=== PATIENT | female | born 1960 | race Caucasian/White ===

== ENCOUNTER 2016-11-25 12:01 | Inpatient (IN) | payer SELFPAY ==
[~2016-11-25] VITALS: Ht 165.1 cm; Wt 59.0 kg
[2016-11-25] MEDS ORDERED: CLARITIN5 MG ORAL (12:13)
[2016-11-25] MEDS ORDERED: GABAPENTIN100 MG ORAL (12:13)
[2016-11-25 12:40] VITALS: BP 99/64
[2016-11-25 12:52] LABS: MEAN CORPUSCULAR HEMOGLOBIN 31.5 PG (27.0-31.0); MEAN CORPUSCULAR HGB CONC 34.3 G/DL (32.0-36.0); MEAN CORPUSCULAR VOLUME 92 FL (80-99); PLATELET COUNT 438 K/UL (150-450); RED BLOOD COUNT 4.24 M/UL (4.20-5.40); RED CELL DISTRIBUTION WIDTH 10.9 % (11.6-14.8); WHITE BLOOD COUNT 15.3 K/UL (4.8-10.8)
[2016-11-25 13:05] LABS: ALANINE AMINOTRANSFERASE 11 U/L (3-33); ALBUMIN/GLOBULIN RATIO 0.5 (1.0-2.7); ASPARTATE AMINO TRANSFERASE 23 U/L (5-40); CALCIUM 8.2 mg/dL (8.6-10.2); CARBON DIOXIDE 18 mEQ/L (20-30); CHLORIDE 84 mEQ/L (98-107); CREATININE 0.8 mg/dL (0.5-0.9); GLOMERULAR FILTRATION RATE > 60 mL/min (>60); HEMOLYSIS 4; LIPASE 22 U/L (< 60); SODIUM 123 mEQ/L (135-145); TOTAL PROTEIN 5.7 g/dL (6.6-8.7)
[2016-11-25 13:10] LABS: ANION GAP 21 (5-15)
[2016-11-25 13:11] LABS: POTASSIUM 2.1 mEQ/L (3.4-4.9)
[2016-11-25 13:20] LABS: BAND NEUTROPHILS % (MANUAL) 19 % (0-8); BASOPHILS % (MANUAL) 0 % (0-2); EOSINOPHILS % (MANUAL) 0 % (0-3); HYPOCHROMASIA 1+; LYMPHOCYTES % (MANUAL) 4 % (20-45); NEUTROPHILS % (MANUAL) 72 % (45-75); PLATELET ESTIMATE ADEQUATE; PLATELET MORPHOLOGY NORMAL; TOTAL CELLS COUNTED 100
[2016-11-25 14:00] VITALS: BP 131/87
[2016-11-25] MEDS ORDERED: Piperacillin/Tazobactam 4.5 GM in NS 110 ML IV SCH (14:00)
[2016-11-25] MEDS ORDERED: KCl 10% 40mEq/30ml liquid ORAL ONE ×2 (14:00)
--- NOTE | 2016-11-25 14:18 | Emergency Room Report ---
History of Present Illness General Chief Complaint: Abdominal Pain Source: Patient (CORONA SCHMIDT M.D.) Present Illness HPI 55YOF with abdominal pain, nausea and diffuse watery diarrhea. C/o worsening pain to known hernia site. States she has "two" in the umbilicus. Denies abd/ pelvic surgery in the past. C/o chills as well. Denies urinary complaints. Denies other medical problems. (CORONA SCHMIDT M.D.) Allergies: Coded Allergies: No Known Allergies (Unverified , 09/20/13) Patient History Past Medical History: none Past Surgical History: other - Hernia Pertinent Family History: none Social History: Denies: alcohol use, drug use, smoking Last Menstrual Period: N/A Now: No Immunizations: UTD Reviewed Nursing Documentation: PMH: Agreed, PSxH: Agreed (CORONA SCHMIDT M.D.) Nursing Documentation-PMH Hx COPD: Yes (CORONA SCHMIDT M.D.) Review of Systems All Other Systems: negative except mentioned in HPI (CORONA SCHMIDT M.D.) Physical Exam Vital Signs Date Time Temp Pulse Resp B/P Pulse Ox O2 Delivery O2 Flow Rate FiO2 11/25/16 12:00 98.1 107 14 105/76 100 Room Air Sp02 EP Interpretation: reviewed, normal General Appearance: normal inspection, well appearing, alert, GCS 15, non-toxic , mild distress Head: normocephalic, atraumatic Eyes: bilateral eye EOMI, bilateral eye PERRL ENT: normal ENT inspection Neck: normal inspection, full range of motion, supple, no bony tend Respiratory: normal inspection, lungs clear, normal breath sounds, no respiratory distress, no retraction, no wheezing Cardiovascular #1: regular rate, rhythm, no edema Gastrointestinal: normal inspection, normal bowel sounds, soft, no guarding, no hernia, other - easily reducible para-umbilical hernia, 3cm in diameter, no overlying erythema Genitourinary: no CVA tenderness Musculoskeletal: normal inspection, back normal, normal range of motion, Nando' s Sign negative Neurologic: normal inspection, alert, oriented x3, responsive, radio maintainer III-XII nml as tested, motor strength/tone normal, speech normal Psychiatric: normal inspection, judgement/insight normal, mood/affect normal Skin: normal inspection, normal color, no rash (CORONA SCHMIDT M.D.) Medical Decision Making Diagnostic Impression: Primary Impression: Abdominal pain Qualified Codes: R10.84 - Generalized abdominal pain Additional Impressions: Hyponatremia Hypokalemia Sepsis Qualified Codes: A41.9 - Sepsis, unspecified organism Pancolitis Alcohol abuse ER Course Abd pain, nausea/diarrhea - VSS. Afebrile. - Reducible hernia - Labs significant for sepsis, hypoNa, hypoK - Analgesia provided - Empiric Abx given - Blood Cx pending - K repleted - NS given CTAP pending at time of signout Endorsed to Dr Dahl at 230pm to followup results of CT, endorse for admission (CORONA SCHMIDT M.D.) ER Course Patient was endorsed to me by Dr. Schmidt. See Dr. Schmidt's note for full history and physical.Patient was noted to have a chronic diarrhea and states she drank several alcoholic drinks a day regularly. The patient reported having multiple episodes of diarrhea which was somewhat bloody A CT abdomen pelvis read by radiology showed evidence of pancolitis. Dr. Lyons was contacted for inpatient management due to complexity of medical condition. Labs Test 11/25/16 12:30 11/25/16 15:20 11/25/16 16:05 White Blood Count 15.3 K/UL (4.8-10.8) Red Blood Count 4.24 M/UL (4.20-5.40) Hemoglobin 13.3 G/DL (12.0-16.0) Hematocrit 38.9 % (37.0-47.0) Mean Corpuscular Volume 92 FL (80-99) Mean Corpuscular Hemoglobin 31.5 PG (27.0-31.0) Mean Corpuscular Hemoglobin Concent 34.3 G/DL (32.0-36.0) Red Cell Distribution Width 10.9 % (11.6-14.8) Platelet Count 438 K/UL (150-450) Mean Platelet Volume 8.0 FL (6.5-10.1) Neutrophils (%) (Auto) % (45.0-75.0) Lymphocytes (%) (Auto) % (20.0-45.0) Monocytes (%) (Auto) % (1.0-10.0) Eosinophils (%) (Auto) % (0.0-3.0) Basophils (%) (Auto) % (0.0-2.0) Differential Total Cells Counted 100 Neutrophils % (Manual) 72 % (45-75) Lymphocytes % (Manual) 4 % (20-45) Monocytes % (Manual) 5 % (1-10) Eosinophils % (Manual) 0 % (0-3) Basophils % (Manual) 0 % (0-2) Band Neutrophils 19 % (0-8) Platelet Estimate Adequate Platelet Morphology Normal Hypochromasia 1+ Sodium Level 123 mEQ/L (135-145) Potassium Level 2.1 mEQ/L (3.4-4.9) Chloride Level 84 mEQ/L (98-107) Carbon Dioxide Level 18 mEQ/L (20-30) Anion Gap 21 (5-15) Blood Urea Nitrogen 13 mg/dL (7-23) Creatinine 0.8 mg/dL (0.5-0.9) Estimat Glomerular Filtration Rate > 60 mL/min (>60) Glucose Level 195 mg/dL (74-106) Calcium Level 8.2 mg/dL (8.6-10.2) Total Bilirubin 0.8 mg/dL (0.0-1.2) Aspartate Amino Transf (AST/SGOT) 23 U/L (5-40) Alanine Aminotransferase (ALT/SGPT) 11 U/L (3-33) Alkaline Phosphatase 85 U/L (35-104) Total Protein 5.7 g/dL (6.6-8.7) Albumin 2.1 g/dL (3.5-5.2) Globulin 3.6 g/dL Albumin/Globulin Ratio 0.5 (1.0-2.7) Lipase 22 U/L (< 60) Lactic Acid Level 3.00 mmol/L (0.66-2.22) (Angel Dahl) EKG Diagnostic Results Rate: normal Rhythm: NSR ST Segments: no acute changes ASA given to the pt in ED: No (CORONA SCHMIDT M.D.) Rhythm Strip Diag. Results EP Interpretation: yes Rate: 95 Rhythm: NSR, no PVC's, no ectopy (CORONA SCHMIDT M.D.) Last Vital Signs Date Time Temp Pulse Resp B/P Pulse Ox O2 Delivery O2 Flow Rate FiO2 11/25/16 12:40 98.1 100 14 99/64 100 Room Air Status: improved (CORONA SCHMIDT M.D.) Status: unchanged (Angel Dahl) Disposition: ADMITTED INPATIENT Condition: Serious Referrals: NOT CHOSEN IPA/,REFERRING (PCP) CORONA SCHMIDT M.D. Nov 25, 2016 14:18 Angel Dahl Nov 25, 2016 17:11
[2016-11-25] MEDS: Vancomycin 1 GM in NS 275 ML IV ONE ×2 (15:20→16:35)
[2016-11-25] MEDS ORDERED: Miralax 17gm pkt ORAL PRN (16:00)
[2016-11-25] MEDS ORDERED: Mylanta II UD 30ml ORAL PRN (16:00)
[2016-11-25] MEDS ORDERED: Nitroglycerin Subl 0.4mg tab (Bottle Of 25) SL PRN (16:00)
[2016-11-25] MEDS ORDERED: Morphine Sulfate 2mg/ml Inj IVP ONE (16:15)
[2016-11-25] MEDS ORDERED: Vancomycin 1gm inj IVPB ONE ×2 (16:27→16:39)
[2016-11-25 16:30] VITALS: BP 112/69
--- NOTE | 2016-11-25 16:34 | Diagnostic Imaging Report ---
Indication: Abdominal pain Technique: Continuous helical transaxial imaging of the abdomen and pelvis was obtained from the lung bases to the pubic symphysis during intravenous contrast administration. Coronal 2-D reformats were also obtained. Study obtained in a Siemens sensation [address] Total Dose length Product (DLP): [address] Dose Index Volume (CTDIvol): 12 mGy Comparison: None Findings: There is a moderate size paraesophageal hernia present. The lung bases are clear. The liver is low-attenuation consistent with fatty infiltration. There is wall thickening involving the colon diffusely suspicious for colitis. Please correlate clinically. There is no pneumatosis, free air, free fluid. Aorta is moderately calcified. Uterus is noted. There is no evidence of bowel obstruction. The gallbladder is contracted but unremarkable otherwise. No abnormalities of the spleen identified. There are punctate calcifications within the pancreatic head which may be sign of prior pancreatitis. There is a epigastric fat-containing abdominal wall hernia at the midline anterior abdominal wall. Appendix is not definitely seen but there are no secondary signs of acute appendicitis. A few small nodes in the mesentery noted nonspecific in nature. There is narrowing of intervertebral discs and accompanying endplate osteophyte formation. Hypertrophied facet joints also demonstrated.. Minimal anterolisthesis of L4 and 5 demonstrated. Impression: Pancolitis. Fatty liver Paraesophageal hernia Atherosclerotic disease Epigastric fat-containing hernia. Chronic calcific pancreatitis suspected involving the head of the pancreas. Spondylosis The CT scanner at [facility] is accredited by the [employer] and the scans are performed using dose optimization techniques as appropriate to a performed exam including Automatic Exposure control.
[2016-11-25 17:23] LABS: REFLEX LACTIC ACID YES OR NO YES
[2016-11-25 18:16] VITALS: BP 119/77
--- NOTE | 2016-11-25 18:52 | History and Physical ---
History of Present Illness General Date patient seen: Nov 25, 2016 Reason for Hospitalization: Abdominal Pain Present Illness HPI 55 year old female with hx of Depression, ETOH abuse presented to ER with bloody diarrhea, She was diagnosed to have pancolitis via CT scan and admitted for further evaluation. Allergies: Coded Allergies: No Known Allergies (Unverified , 09/20/13) Medication History Scheduled Gabapentin* (Gabapentin*), 100 MG ORAL THREE TIMES A DAY, (Reported) Loratadine (Claritin), 5 MG ORAL DAILY, (Reported) Patient History Healthcare decision maker Resuscitation status Advanced Directive on File Past Medical/Surgical History Past Medical/Surgical History: (1) abodminal hernia (2) Alcohol abuse Review of Systems All Other Systems: negative except mentioned in HPI Physical Exam General Appearance: cachetic Lines, tubes and drains: peripheral HEENT: normocephalic, atraumatic Neck: non-tender, normal alignment Respiratory/Chest: chest wall non-tender, lungs clear Breasts: no masses Cardiovascular/Chest: normal rate Abdomen: tender Genitourinary/Rectal: normal genital exam Extremities: normal range of motion Last 24 Hour Vital Signs Date Time Temp Pulse Resp B/P Pulse Ox O2 Delivery O2 Flow Rate FiO2 11/25/16 18:16 97.9 83 19 119/77 100 Room Air 11/25/16 17:26 98.1 80 16 112/69 100 Room Air 11/25/16 17:05 98.1 11/25/16 16:30 80 16 112/69 100 Room Air 11/25/16 14:00 88 16 131/87 100 Room Air 11/25/16 12:40 98.1 100 14 99/64 100 Room Air 11/25/16 12:00 98.1 107 14 105/76 100 Room Air Laboratory Tests Test 11/25/16 12:30 11/25/16 15:20 11/25/16 16:05 White Blood Count 15.3 K/UL (4.8-10.8) H Red Blood Count 4.24 M/UL (4.20-5.40) Hemoglobin 13.3 G/DL (12.0-16.0) Hematocrit 38.9 % (37.0-47.0) Mean Corpuscular Volume 92 FL (80-99) Mean Corpuscular Hemoglobin 31.5 PG (27.0-31.0) H Mean Corpuscular Hemoglobin Concent 34.3 G/DL (32.0-36.0) Red Cell Distribution Width 10.9 % (11.6-14.8) L Platelet Count 438 K/UL (150-450) Mean Platelet Volume 8.0 FL (6.5-10.1) Neutrophils (%) (Auto) % (45.0-75.0) Lymphocytes (%) (Auto) % (20.0-45.0) Monocytes (%) (Auto) % (1.0-10.0) Eosinophils (%) (Auto) % (0.0-3.0) Basophils (%) (Auto) % (0.0-2.0) Differential Total Cells Counted 100 Neutrophils % (Manual) 72 % (45-75) Lymphocytes % (Manual) 4 % (20-45) L Monocytes % (Manual) 5 % (1-10) Eosinophils % (Manual) 0 % (0-3) Basophils % (Manual) 0 % (0-2) Band Neutrophils 19 % (0-8) H Platelet Estimate Adequate Platelet Morphology Normal Hypochromasia 1+ Sodium Level 123 mEQ/L (135-145) L Potassium Level 2.1 mEQ/L (3.4-4.9) *L Chloride Level 84 mEQ/L (98-107) L Carbon Dioxide Level 18 mEQ/L (20-30) L Anion Gap 21 (5-15) H Blood Urea Nitrogen 13 mg/dL (7-23) Creatinine 0.8 mg/dL (0.5-0.9) Estimat Glomerular Filtration Rate > 60 mL/min (>60) Glucose Level 195 mg/dL (74-106) H Calcium Level 8.2 mg/dL (8.6-10.2) L Total Bilirubin 0.8 mg/dL (0.0-1.2) Aspartate Amino Transf (AST/SGOT) 23 U/L (5-40) Alanine Aminotransferase (ALT/SGPT) 11 U/L (3-33) Alkaline Phosphatase 85 U/L (35-104) Total Protein 5.7 g/dL (6.6-8.7) L Albumin 2.1 g/dL (3.5-5.2) L Globulin 3.6 g/dL Albumin/Globulin Ratio 0.5 (1.0-2.7) L Lipase 22 U/L (< 60) Urine Color Pending Urine Appearance Pending Urine pH Pending Urine Specific [place] Pending Urine Protein Pending Urine Glucose (UA) Pending Urine Ketones Pending Urine Occult Blood Pending Urine Nitrite Pending Urine Bilirubin Pending Urine Urobilinogen Pending Urine Leukocyte Esterase Pending Lactic Acid Level 3.00 mmol/L (0.66-2.22) H Height (Feet): 5 Height (Inches): 1.00 Weight (Pounds): 130 Medications Current Medications Medications (Trade) Dose Ordered Sig/Pebbles Route PRN Reason Start Time Stop Time Status Last Admin Dose Admin Acetaminophen (Tylenol) 650 mg Q4H PRN ORAL fever 11/25/16 16:00 12/25/16 15:59 Al Hydroxide/Mg Hydroxide (Mylanta II) 30 ml Q6H PRN ORAL dyspepsia 11/25/16 16:00 12/25/16 15:59 Dextrose STAT PRN IV Hypoglycemia 11/25/16 16:00 12/25/16 15:59 Dextrose/Sodium Chloride (D5 0.45% NS) 1,000 ml @ 75 mls/hr [id number] IV 11/25/16 18:00 12/25/16 17:59 Diphenhydramine HCl (Benadryl) 25 mg Q6H PRN ORAL Itching/Pruritis 11/25/16 16:00 12/25/16 15:59 Heparin Sodium (Porcine) (Heparin 5000 units/ml) 5,000 units EVERY 12 HOURS SUBQ 11/25/16 21:00 12/25/16 20:59 Morphine Sulfate (Morphine Sulfate) 2 mg Q4H PRN IVP severe Pain (Pain Scale 7-10) 11/25/16 16:00 12/02/16 15:59 Nitroglycerin (Ntg) 0.4 mg Q5M X 3 DOSES PRN SL Prn Chest Pain 11/25/16 16:00 12/25/16 15:59 Ondansetron HCl (Zofran) 4 mg Q6H PRN IVP Nausea & Vomiting 11/25/16 16:00 12/25/16 15:59 Pantoprazole (Protonix) 40 mg DAILY IVP 11/26/16 09:00 12/26/16 08:59 Piperacillin Sod/ Tazobactam Sod/ Dextrose (Zosyn/D5W) 110 ml @ 27.5 mls/hr EVERY 8 HOURS IVPB 11/25/16 22:00 12/02/16 21:59 Polyethylene Glycol (Miralax) 17 gm HSPRN PRN ORAL Constipation 11/25/16 16:00 12/25/16 15:59 Temazepam (Restoril) 15 mg HSPRN PRN ORAL Insomnia 11/25/16 16:00 12/02/16 15:59 Assessment/Plan Problem List: (1) Pancolitis ICD Codes: K51.00 - Ulcerative (chronic) pancolitis without complications SNOMED: 679037555 (2) Sepsis ICD Codes: A41.9 - Sepsis, unspecified organism SNOMED: 20859070 Qualifiers: Qualified Codes: A41.9 - Sepsis, unspecified organism (3) Hyponatremia ICD Codes: E87.1 - Hypo-osmolality and hyponatremia SNOMED: 53660771 (4) abodminal hernia (5) Alcohol abuse ICD Codes: F10.10 - Alcohol abuse, uncomplicated SNOMED: 38893589 Assessment/Plan IV antibiotics IV fluids check stool cultures GI evaluation. JESSICA GARCIA Nov 25, 2016 18:52
[2016-11-25 20:00] VITALS: BP 112/63
[2016-11-25] MEDS: D5 1/2NS 1,000 ML IV SCH (20:30)
[2016-11-25] MEDS: Heparin 5000 units/ml inj SUBQ SCH (21:00)
[2016-11-25] MEDS: Piperacillin/Tazobactam 3.375 GM in D5W 110 ML IVPB SCH (22:18)
[2016-11-26] VITALS (7 sets, daily range): BP systolic 99–128; BP diastolic 59–76
[2016-11-26] MEDS: Piperacillin/Tazobactam 3.375 GM in D5W 110 ML IVPB SCH ×3 (05:29→21:22)
[2016-11-26] MEDS: Morphine Sulfate 2mg/ml Inj IVP PRN ×3 (06:03→15:58)
[2016-11-26 08:36] LABS: ALANINE AMINOTRANSFERASE 9 U/L (3-33); ALBUMIN/GLOBULIN RATIO 0.5 (1.0-2.7); AMYLASE 30 U/L (10-110); ASPARTATE AMINO TRANSFERASE 13 U/L (5-40); CALCIUM 7.4 mg/dL (8.6-10.2); CARBON DIOXIDE 23 mEQ/L (20-30); CHLORIDE 90 mEQ/L (98-107); CREATININE 0.6 mg/dL (0.5-0.9); GLOMERULAR FILTRATION RATE > 60 mL/min (>60); HEMOLYSIS 3; SODIUM 128 mEQ/L (135-145); TOTAL PROTEIN 4.9 g/dL (6.6-8.7)
[2016-11-26] MEDS: Heparin 5000 units/ml inj SUBQ SCH ×2 (08:38→21:21)
[2016-11-26 08:47] LABS: ANION GAP 15 (5-15)
[2016-11-26] MEDS: D5 1/2NS 1,000 ML IV SCH (08:50)
[2016-11-26 08:58] LABS: POTASSIUM 2.5 mEQ/L (3.4-4.9)
[2016-11-26] MEDS ORDERED: Pantoprazole Inj IVP SCH ×2 (09:00→18:00)
[2016-11-26 10:17] LABS: APPEARANCE,URINE CLEAR; KETONES,URINE NEGATIVE (NEGATIVE); LEUKOCYTE ESTERASE ,URINE 1+ (NEGATIVE); NITRITE,URINE POSITIVE (NEGATIVE); PH,URINE 5 (4.5-8.0); PROTEIN,URINE 1+ (NEGATIVE); UROBILINOGEN,URINE NORMAL MG/DL (0.0-1.0)
[2016-11-26 10:24] LABS: MEAN CORPUSCULAR HEMOGLOBIN 32.3 PG (27.0-31.0); MEAN CORPUSCULAR HGB CONC 34.8 G/DL (32.0-36.0); MEAN CORPUSCULAR VOLUME 93 FL (80-99); MEAN PLATELET VOLUME 7.7 FL (6.5-10.1); PLATELET COUNT 387 K/UL (150-450); RED BLOOD COUNT 3.33 M/UL (4.20-5.40); RED CELL DISTRIBUTION WIDTH 10.8 % (11.6-14.8); WHITE BLOOD COUNT 8.2 K/UL (4.8-10.8)
[2016-11-26 10:27] LABS: BACTERIA,URINE FEW /HPF; SQUAMOUS EPITHELIAL CELL,UR FEW /LPF (NONE/OCC)
[2016-11-26 10:42] LABS: BAND NEUTROPHILS % (MANUAL) 19 % (0-8); LYMPHOCYTES % (MANUAL) 12 % (20-45); NEUTROPHILS % (MANUAL) 63 % (45-75); TOTAL CELLS COUNTED 100
[2016-11-26 10:43] LABS: ANISOCYTOSIS 1+; BASOPHILS % (MANUAL) 0 % (0-2); EOSINOPHILS % (MANUAL) 0 % (0-3); HYPOCHROMASIA 1+; PLATELET ESTIMATE ADEQUATE; PLATELET MORPHOLOGY NORMAL; SPHEROCYTES 1+; TOXIC GRANULATION 2+
[2016-11-26 10:57] LABS: REFLEX LACTIC ACID YES OR NO YES
--- NOTE | 2016-11-26 12:02 | Consultation ---
Consult Note Consult Note ID DIC # [id number] JOE JACOBSEN M.D. Nov 26, 2016 12:02
--- NOTE | 2016-11-26 12:21 | GI Initial Consult Note ---
History of Present Illness General Date patient seen: Nov 26, 2016 Time patient seen: 12:19 Reason for Hospitalization: Abdominal Pain Referring physician: JESSICA OVALLE Reason for Consultation: DIARRHEA Present Illness HPI Patient was noted to have a chronic diarrhea and states she drank several alcoholic drinks a day regularly. The patient reported having multiple episodes of diarrhea which was somewhat bloody A CT abdomen pelvis read by radiology showed evidence of pancolitis. GI Consult. HPI as noted above. GI consulted for diarrhea. Pt seen on floor , awake A&Ox4 NAD c/o of diarrhea with abdominal pain. Denies any unintentional weight loss or changes in dietary habits. The patient denies any recent use of abx. Presents today with leukocytosis and hypoalbuminemia. Last colonoscopy x 1 year with unremarkable results per patient. Home Meds Reported Medications Gabapentin* (GABAPENTIN*) 100 Mg Capsule, 100 MG ORAL THREE TIMES A DAY, CAP 11/25/16 Loratadine (CLARITIN) 5 Mg Tab.rapdis, 5 MG ORAL DAILY, TAB 11/25/16 Med list reviewed/reconciled: Yes Allergies: Coded Allergies: No Known Allergies (Unverified , 09/20/13) Patient History History Provided By: Patient, Medical Record Past Medical History: COPD Social History: Reports: alcohol use Review of Systems All Other Systems: negative except mentioned in HPI Physical Exam Vital Signs Date Time Temp Pulse Resp B/P Pulse Ox O2 Delivery O2 Flow Rate FiO2 11/25/16 12:00 98.1 107 14 105/76 100 Room Air Sp02 EP Interpretation: reviewed Labs Laboratory Tests Test 11/25/16 12:30 11/25/16 15:00 11/25/16 15:20 11/25/16 16:05 White Blood Count 15.3 K/UL (4.8-10.8) H Red Blood Count 4.24 M/UL (4.20-5.40) Hemoglobin 13.3 G/DL (12.0-16.0) Hematocrit 38.9 % (37.0-47.0) Mean Corpuscular Volume 92 FL (80-99) Mean Corpuscular Hemoglobin 31.5 PG (27.0-31.0) H Mean Corpuscular Hemoglobin Concent 34.3 G/DL (32.0-36.0) Red Cell Distribution Width 10.9 % (11.6-14.8) L Platelet Count 438 K/UL (150-450) Mean Platelet Volume 8.0 FL (6.5-10.1) Neutrophils (%) (Auto) % (45.0-75.0) Lymphocytes (%) (Auto) % (20.0-45.0) Monocytes (%) (Auto) % (1.0-10.0) Eosinophils (%) (Auto) % (0.0-3.0) Basophils (%) (Auto) % (0.0-2.0) Differential Total Cells Counted 100 Neutrophils % (Manual) 72 % (45-75) Lymphocytes % (Manual) 4 % (20-45) L Monocytes % (Manual) 5 % (1-10) Eosinophils % (Manual) 0 % (0-3) Basophils % (Manual) 0 % (0-2) Band Neutrophils 19 % (0-8) H Platelet Estimate Adequate Platelet Morphology Normal Hypochromasia 1+ Sodium Level 123 mEQ/L (135-145) L Potassium Level 2.1 mEQ/L (3.4-4.9) *L Chloride Level 84 mEQ/L (98-107) L Carbon Dioxide Level 18 mEQ/L (20-30) L Anion Gap 21 (5-15) H Blood Urea Nitrogen 13 mg/dL (7-23) Creatinine 0.8 mg/dL (0.5-0.9) Estimat Glomerular Filtration Rate > 60 mL/min (>60) Glucose Level 195 mg/dL (74-106) H Calcium Level 8.2 mg/dL (8.6-10.2) L Total Bilirubin 0.8 mg/dL (0.0-1.2) Aspartate Amino Transf (AST/SGOT) 23 U/L (5-40) Alanine Aminotransferase (ALT/SGPT) 11 U/L (3-33) Alkaline Phosphatase 85 U/L (35-104) Total Protein 5.7 g/dL (6.6-8.7) L Albumin 2.1 g/dL (3.5-5.2) L Globulin 3.6 g/dL Albumin/Globulin Ratio 0.5 (1.0-2.7) L Lipase 22 U/L (< 60) Stool Occult Blood Positive (NEGATIVE) Urine Color Pending Urine Appearance Pending Urine pH Pending Urine Specific [place] Pending Urine Protein Pending Urine Glucose (UA) Pending Urine Ketones Pending Urine Occult Blood Pending Urine Nitrite Pending Urine Bilirubin Pending Urine Urobilinogen Pending Urine Leukocyte Esterase Pending Lactic Acid Level 3.00 mmol/L (0.66-2.22) H Test 11/26/16 07:00 11/26/16 09:40 11/26/16 10:08 Activated Partial Thromboplast Time 35 SEC (23-33) H Sodium Level 128 mEQ/L (135-145) L Potassium Level 2.5 mEQ/L (3.4-4.9) *L Chloride Level 90 mEQ/L (98-107) L Carbon Dioxide Level 23 mEQ/L (20-30) Anion Gap 15 (5-15) Blood Urea Nitrogen 11 mg/dL (7-23) Creatinine 0.6 mg/dL (0.5-0.9) Estimat Glomerular Filtration Rate > 60 mL/min (>60) Glucose Level 121 mg/dL (74-106) H Calcium Level 7.4 mg/dL (8.6-10.2) L Total Bilirubin 0.8 mg/dL (0.0-1.2) Aspartate Amino Transf (AST/SGOT) 13 U/L (5-40) Alanine Aminotransferase (ALT/SGPT) 9 U/L (3-33) Alkaline Phosphatase 66 U/L (35-104) Total Protein 4.9 g/dL (6.6-8.7) L Albumin 1.7 g/dL (3.5-5.2) L Globulin 3.2 g/dL Albumin/Globulin Ratio 0.5 (1.0-2.7) L Amylase Level 30 U/L (10-110) White Blood Count 8.2 K/UL (4.8-10.8) Red Blood Count 3.33 M/UL (4.20-5.40) L Hemoglobin 10.8 G/DL (12.0-16.0) L Hematocrit 30.9 % (37.0-47.0) L Mean Corpuscular Volume 93 FL (80-99) Mean Corpuscular Hemoglobin 32.3 PG (27.0-31.0) H Mean Corpuscular Hemoglobin Concent 34.8 G/DL (32.0-36.0) Red Cell Distribution Width 10.8 % (11.6-14.8) L Platelet Count 387 K/UL (150-450) Mean Platelet Volume 7.7 FL (6.5-10.1) Neutrophils (%) (Auto) % (45.0-75.0) Lymphocytes (%) (Auto) % (20.0-45.0) Monocytes (%) (Auto) % (1.0-10.0) Eosinophils (%) (Auto) % (0.0-3.0) Basophils (%) (Auto) % (0.0-2.0) Differential Total Cells Counted 100 Neutrophils % (Manual) 63 % (45-75) Lymphocytes % (Manual) 12 % (20-45) L Monocytes % (Manual) 6 % (1-10) Eosinophils % (Manual) 0 % (0-3) Basophils % (Manual) 0 % (0-2) Band Neutrophils 19 % (0-8) H Toxic Granulation 2+ Platelet Estimate Adequate Platelet Morphology Normal Hypochromasia 1+ Anisocytosis 1+ Spherocytes 1+ Lactic Acid Level 2.60 mmol/L (0.66-2.22) H Urine Color Yellow Urine Appearance Clear Urine pH 5 (4.5-8.0) Urine Specific [place] 1.010 (1.005-1.035) Urine Protein 1+ (NEGATIVE) H Urine Glucose (UA) Negative (NEGATIVE) Urine Ketones Negative (NEGATIVE) Urine Occult Blood 1+ (NEGATIVE) H Urine Nitrite Positive (NEGATIVE) H Urine Bilirubin Negative (NEGATIVE) Urine Urobilinogen Normal MG/DL (0.0-1.0) Urine Leukocyte Esterase 1+ (NEGATIVE) H Urine RBC 2-4 /HPF (0 - 2) H Urine WBC 5-10 /HPF (0 - 2) H Urine Squamous Epithelial Cells Few /LPF (NONE/OCC) Urine Bacteria Few /HPF (NONE) General Appearance: well appearing, no apparent distress, alert Head: normocephalic EENT: PERRL/EOMI, normal ENT inspection Neck: full range of motion, supple Respiratory: no respiratory distress Cardiovascular: normal rate Gastrointestinal: non tender, soft, normal bowel sounds Rectal: deferred Genitourinary: no CVA tenderness Musculoskeletal: normal inspection, back normal Neurologic: normal inspection, alert, oriented x3, responsive Psychiatric: normal inspection, judgement/insight normal, memory normal Skin: normal inspection, normal color, no rash, warm/dry Lymphatic: normal inspection, no adenopathy, axilla node tender (R) Current Medications Current Medications Medications (Trade) Dose Ordered Sig/Pebbles Route PRN Reason Start Time Stop Time Status Last Admin Dose Admin Acetaminophen (Tylenol) 650 mg Q4H PRN ORAL fever 11/25/16 16:00 12/25/16 15:59 Al Hydroxide/Mg Hydroxide (Mylanta II) 30 ml Q6H PRN ORAL dyspepsia 11/25/16 16:00 12/25/16 15:59 Dextrose STAT PRN IV Hypoglycemia 11/25/16 16:00 12/25/16 15:59 Dextrose/Sodium Chloride (D5 0.45% NS) 1,000 ml @ 75 mls/hr [id number] IV 11/25/16 18:00 12/25/16 17:59 11/26/16 08:50 Diphenhydramine HCl (Benadryl) 25 mg Q6H PRN ORAL Itching/Pruritis 11/25/16 16:00 12/25/16 15:59 Heparin Sodium (Porcine) (Heparin 5000 units/ml) 5,000 units EVERY 12 HOURS SUBQ 11/25/16 21:00 12/25/16 20:59 Metronidazole (Flagyl) 100 ml @ 100 mls/hr Q8HR IVPB 11/26/16 14:00 12/03/16 13:59 UNV Morphine Sulfate (Morphine Sulfate) 2 mg Q4H PRN IVP severe Pain (Pain Scale 7-10) 11/25/16 16:00 12/02/16 15:59 11/26/16 12:03 Nitroglycerin (Ntg) 0.4 mg Q5M X 3 DOSES PRN SL Prn Chest Pain 11/25/16 16:00 12/25/16 15:59 Ondansetron HCl (Zofran) 4 mg Q6H PRN IVP Nausea & Vomiting 11/25/16 16:00 12/25/16 15:59 Pantoprazole 40 mg 40 mg DAILY IVP 11/26/16 09:00 12/26/16 08:59 11/26/16 08:51 Piperacillin Sod/ Tazobactam Sod/ Dextrose (Zosyn/D5W) 110 ml @ 27.5 mls/hr EVERY 8 HOURS IVPB 11/25/16 22:00 12/02/16 21:59 11/26/16 05:29 Polyethylene Glycol (Miralax) 17 gm HSPRN PRN ORAL Constipation 11/25/16 16:00 12/25/16 15:59 Potassium Chloride (K-Dur) 40 meq ONCE ONCE ORAL 11/26/16 12:30 11/26/16 12:31 UNV Temazepam (Restoril) 15 mg HSPRN PRN ORAL Insomnia 11/25/16 16:00 12/02/16 15:59 GI: Plan Problems: (1) Pancolitis (2) Diarrhea (3) Abdominal pain (4) Sepsis (5) Alcohol abuse (6) Severe malnutrition (7) Dehydration Plan OB stool positive lipase WNL fu cdiff, stool studies, O&P IV hydration + electrolyte replacement adv to low residual diet anemia work up prn blood transfusion ppi fu labs Discussed with Dr. Cervantes. Thank you for referring this patient, we will follow. Yolette Ocampo N.P. Nov 26, 2016 12:21
[2016-11-26] MEDS ORDERED: metroNIDAZOLE 500mg 100 ML IVPB SCH (14:00)
--- NOTE | 2016-11-26 14:04 | Consultation ---
Consult Note Consult Note asked to eval for Low Na and Low K Patient interviewed and examined- presented to ER with abd pain patient examined- interviewed- data reviewed Assessment/Plan Abdominal pain Hyponatremia Hypokalemia Sepsis Pancolitis Alcohol abuse HypoAlbuminemia Anemia KCL IV 3% saline urine studies- Monitor SILVIO Moncada Nov 26, 2016 14:03
[2016-11-26] MEDS ORDERED: NaCl 3% 500ml 250 ML IV ONE (15:30)
[2016-11-26] MEDS ORDERED: Nitroglycerin Subl 0.4mg tab (Bottle Of 25) SL PRN (17:30)
--- NOTE | 2016-11-26 17:45 | Consultation ---
DATE OF CONSULTATION: CONSULTING PHYSICIAN: Edilberto Flynn M.D. REQUESTING PHYSICIAN: Isai Lyons M.D. REASON FOR CONSULTATION: Leukocytosis and colitis and antibiotic management. HISTORY OF PRESENT ILLNESS: The patient is a 55-year-old female, who was admitted to this medical center because of abdominal pain associated with fresh red blood in stool. The patient was admitted to this medical center for further workup. At the time of admission, the patient was found to have leukocytosis at 15,000 and the patient has been started on IV antibiotics. An Infectious Disease consultation has been requested for further evaluation of the patient and antibiotic management. PAST MEDICAL HISTORY: 1. COPD. 2. Asthma. MEDICATIONS: IV Zosyn. ALLERGIES: No known drug allergies. SOCIAL HISTORY: The patient is smoker and also has history of alcohol abuse. FAMILY HISTORY: Not contributing. REVIEW OF SYSTEMS: HEENT: No recent change in vision or hearing. Pulmonary: As mentioned above. The patient has occasional cough. Cardiovascular: No chest pain or palpitation. Gastrointestinal/Abdomen: The patient has no nausea or vomiting, however, has abdominal pain mostly on the left lower quadrant. Also has rectal bleed. Genitourinary: No dysuria. Musculoskeletal: No pain in extremities. PHYSICAL EXAMINATION: VITAL SIGNS: Temperature 99 degrees, blood pressure 116/63, pulse 86, and respiratory rate 18. HEENT: No pale conjunctivae. No icterus. NECK: No lymphadenopathy. CHEST: Mild wheezes at the bases of both lungs. HEART: S1 and S2. ABDOMEN: Mildly distended. The patient has pain in all four quadrants, mostly in the left lower quadrant with mild rebound. EXTREMITIES: No cyanosis. NEUROLOGIC: Awake and alert. LABORATORY DATA: White blood cells 15.3, decreased to 8.2, hemoglobin 10.8, and platelets 387,000. UA, unremarkable. BUN 11 and creatinine 0.6. ALT, AST, and alkaline phosphatase are unremarkable. Lipase unremarkable. Stool for C. diff negative. CT of the abdomen shows pancolitis, prior esophageal hernia, and chronic calcified pancreatitis. ASSESSMENT: The patient is a 55-year-old female with, 1. Leukocytosis. 2. Low-grade fever. 3. Pancolitis (rule out ischemic versus infectious), stool for Clostridium difficile was negative. PLAN: 1. We will continue the patient on IV Zosyn. We will add Flagyl. 2. Stool for culture. 3. Stool for ova and parasite. 4. Monitor CBC. 5. Monitor BMP. 6. We will recommend GI consult for a possible colonoscopy and biopsy. 7. We will order an HIV test and hepatitis panel. 8. Based on the patient's clinical course and labs, we will do further recommendations. Thank you Dr. Lyons for allowing me to participate in the care of this patient. I will follow the patient with you during this hospitalization. Edilberto Flynn M.D. DR: REMEDIOS JOB#: [id number] CC:
[2016-11-26] MEDS: Pantoprazole Inj IVP SCH (18:01)
[2016-11-26] MEDS ORDERED: Morphine Sulfate 2mg/ml Inj IVP PRN (20:00)
[2016-11-26] MEDS: metroNIDAZOLE 500mg 100 ML IVPB SCH (21:18)
[2016-11-26] MEDS: Morphine Sulfate 4mg/ml Inj IVP PRN (22:52)
[2016-11-27] VITALS (7 sets, daily range): BP systolic 81–153; BP diastolic 49–95
[2016-11-27] MEDS: Morphine Sulfate 4mg/ml Inj IVP PRN ×3 (05:22→23:19)
[2016-11-27] MEDS: metroNIDAZOLE 500mg 100 ML IVPB SCH ×3 (05:22→21:55)
[2016-11-27] MEDS: Piperacillin/Tazobactam 3.375 GM in D5W 110 ML IVPB SCH ×3 (05:22→21:55)
[2016-11-27 07:42] LABS: CRP QUANT 24.1 mg/dL (< 0.5); LIPASE 9 U/L (< 60); PHOSPHORUS 1.7 mg/dL (2.5-4.8); URIC ACID 1.3 mg/dL (3.0-7.5)
[2016-11-27 07:56] LABS: AMMONIA 55 umol/L (11-51)
[2016-11-27 07:58] LABS: ALANINE AMINOTRANSFERASE 12 U/L (3-33); ALBUMIN/GLOBULIN RATIO 0.7 (1.0-2.7); ANION GAP 13 (5-15); ASPARTATE AMINO TRANSFERASE 18 U/L (5-40); CALCIUM 6.9 mg/dL (8.6-10.2); CARBON DIOXIDE 20 mEQ/L (20-30); CHLORIDE 93 mEQ/L (98-107); CHOLESTEROL 49 mg/dL (< 200); CHOLESTEROL/HDL RATIO 6.1 (3.3-4.4); CREATININE 0.5 mg/dL (0.5-0.9); GLOMERULAR FILTRATION RATE > 60 mL/min (>60); LDL CHOLESTEROL (CALC.) 30 mg/dL (60-99); POTASSIUM 3.3 mEQ/L (3.4-4.9); SODIUM 126 mEQ/L (135-145)
[2016-11-27 08:00] LABS: MAGNESIUM 0.9 mg/dL (1.7-2.5)
[2016-11-27 08:04] LABS: FERRITIN 880 ng/mL (13-150)
[2016-11-27 08:26] LABS: HEMOLYSIS 4; IRON 12 ug/dL (37-145); TOTAL IRON BINDING CAPACITY 78 ug/dL (250-400)
[2016-11-27] MEDS: Heparin 5000 units/ml inj SUBQ SCH ×2 (08:57→21:00)
[2016-11-27] MEDS: Pantoprazole Inj IVP SCH ×2 (08:59→17:08)
[2016-11-27] MEDS ORDERED: Potassium Phosphate 20 MM in NS 275 ML IV ONE (09:30)
--- NOTE | 2016-11-27 11:53 | GI Progress Note ---
Assessment/Plan Problems: (1) abodminal hernia (2) Severe malnutrition ICD Codes: E43 - Unspecified severe protein-calorie malnutrition SNOMED: 16587329 (3) Dehydration ICD Codes: E86.0 - Dehydration SNOMED: 32349155 (4) Diarrhea ICD Codes: R19.7 - Diarrhea, unspecified SNOMED: 05283562 (5) Abdominal pain ICD Codes: R10.9 - Unspecified abdominal pain SNOMED: 14162368 Qualifiers: Qualified Codes: R10.84 - Generalized abdominal pain (6) Pancolitis ICD Codes: K51.00 - Ulcerative (chronic) pancolitis without complications SNOMED: 644717670 Status: unchanged Status Narrative Discussed with Dr. Cervantes. Assessment/Plan OB stool positive lipase WNL cdiff negative elevated CEA EGD/colonoscopy scheduled for tomorrow. - CLD, NPO @ [facility]. - hold all blood thinners tonight. fu stool studies, O&P IV hydration + electrolyte replacement prn blood transfusion ppi fu labs Subjective Gastrointestinal/Abdominal: Reports: diarrhea - improved Objective Last 24 Hour Vital Signs Date Time Temp Pulse Resp B/P Pulse Ox O2 Delivery O2 Flow Rate FiO2 11/27/16 11:28 98.2 95 19 108/49 99 Room Air 11/27/16 07:53 98.4 78 18 97/66 99 Room Air 11/27/16 05:53 99.0 11/27/16 03:45 99.0 108 18 99/64 94 Room Air 11/26/16 23:33 97.9 110 18 99/76 96 Room Air 11/26/16 20:45 96.8 11/26/16 20:00 96.8 108 20 109/75 96 Room Air 11/26/16 16:00 97.7 95 19 104/62 100 Room Air 11/26/16 12:00 97 Intake and Output 11/26/16 11/27/16 19:00 07:00 Intake Total 977.5 ml 597.5 ml Balance 977.5 ml 597.5 ml Intake Oral 260 ml IV Total 977.5 ml 337.5 ml # Voids 1 3 Laboratory Tests Test 11/26/16 14:00 11/27/16 03:00 11/27/16 04:55 Lactic Acid Level 2.20 mmol/L (0.66-2.22) Hepatitis A IgM Antibody Pending Hepatitis B Surface Antigen Pending Hepatitis B Core IgM Antibody Pending Hepatitis C Antibody Pending Urine Osmolality Pending Reticulocyte Count 1.5 % (0.0-2.0) Sodium Level 126 mEQ/L (135-145) L Potassium Level 3.3 mEQ/L (3.4-4.9) L Chloride Level 93 mEQ/L (98-107) L Carbon Dioxide Level 20 mEQ/L (20-30) Anion Gap 13 (5-15) Blood Urea Nitrogen 9 mg/dL (7-23) Creatinine 0.5 mg/dL (0.5-0.9) Estimat Glomerular Filtration Rate > 60 mL/min (>60) Glucose Level 70 mg/dL (74-106) L Plasma/Serum Osmolality Pending Uric Acid 1.3 mg/dL (3.0-7.5) L Calcium Level 6.9 mg/dL (8.6-10.2) L Phosphorus Level 1.7 mg/dL (2.5-4.8) L Magnesium Level 0.9 mg/dL (1.7-2.5) *L Iron Level 12 ug/dL (37-145) L Total Iron Binding Capacity 78 ug/dL (250-400) L Percent Iron Saturation 15 % (15-50) Unsaturated Iron Binding 66 ug/dL (112-346) L Ferritin 880 ng/mL (13-150) H Total Bilirubin 0.8 mg/dL (0.0-1.2) Gamma Glutamyl Transpeptidase 41 U/L (5-36) H Aspartate Amino Transf (AST/SGOT) 18 U/L (5-40) Alanine Aminotransferase (ALT/SGPT) 12 U/L (3-33) Alkaline Phosphatase 61 U/L (35-104) Ammonia 55 umol/L (11-51) H Total Creatine Kinase 40 U/L (26-140) C-Reactive Protein, Quantitative 24.1 mg/dL (< 0.5) H Pro-B-Type Natriuretic Peptide 766 pg/mL (0-125) H Total Protein 4.0 g/dL (6.6-8.7) L Albumin 1.7 g/dL (3.5-5.2) L Globulin 2.3 g/dL Albumin/Globulin Ratio 0.7 (1.0-2.7) L Triglycerides Level 55 mg/dL (< 150) Cholesterol Level 49 mg/dL (< 200) LDL Cholesterol 30 mg/dL (60-99) L HDL Cholesterol 8 mg/dL (> 60) Cholesterol/HDL Ratio 6.1 (3.3-4.4) H Lipase 9 U/L (< 60) Carcinoembryonic Antigen 8.4 ng/mL H Vitamin B12 Level 1476 pg/mL (211-946) H Folate Pending Thyroid Stimulating Hormone (TSH) 2.200 uIU/mL (0.300-4.500) Free Thyroxine 1.22 ng/dL (0.86-1.85) HIV (1&2) Antibody Rapid Negative (NEGATIVE) Height (Feet): 5 Height (Inches): 1.00 Weight (Pounds): 130 General Appearance: no apparent distress, alert Cardiovascular: normal rate Respiratory/Chest: normal breath sounds, no respiratory distress Abdominal Exam: normal bowel sounds, non tender, soft Extremities: normal range of motion Yolette Ocampo N.P. Nov 27, 2016 11:53
--- NOTE | 2016-11-27 12:00 | General Progress Note ---
Assessment/Plan Status: other - slightly improved Assessment/Plan status: Abdominal pain Hyponatremia improving Hypokalemia improving Sepsis Pancolitis Alcohol abuse HypoAlbuminemia Anemia stool OB + Plan: KCL IV and Na Phos and Mag po fluid restriction urine studies- Monitor lytes Subjective ROS Limited/Unobtainable: No Constitutional: Reports: malaise, weakness Allergies: Coded Allergies: No Known Allergies (Unverified , 09/20/13) Objective Last 24 Hour Vital Signs Date Time Temp Pulse Resp B/P Pulse Ox O2 Delivery O2 Flow Rate FiO2 11/27/16 11:28 98.2 95 19 108/49 99 Room Air 11/27/16 07:53 98.4 78 18 97/66 99 Room Air 11/27/16 05:53 99.0 11/27/16 03:45 99.0 108 18 99/64 94 Room Air 11/26/16 23:33 97.9 110 18 99/76 96 Room Air 11/26/16 20:45 96.8 11/26/16 20:00 96.8 108 20 109/75 96 Room Air 11/26/16 16:00 97.7 95 19 104/62 100 Room Air 11/26/16 12:00 97 Intake and Output 11/26/16 11/27/16 19:00 07:00 Intake Total 977.5 ml 597.5 ml Balance 977.5 ml 597.5 ml Intake Oral 260 ml IV Total 977.5 ml 337.5 ml # Voids 1 3 Laboratory Tests 11/26/16 14:00: Lactic Acid Level 2.20, Hepatitis A IgM Antibody [Pending], Hepatitis B Surface Antigen [Pending], Hepatitis B Core IgM Antibody [Pending], Hepatitis C Antibody [Pending] 11/27/16 03:00: Urine Osmolality [Pending] 11/27/16 04:55: Reticulocyte Count 1.5, Sodium Level 126L, Potassium Level 3.3L, Chloride Level 93L, Carbon Dioxide Level 20, Anion Gap 13, Blood Urea Nitrogen 9, Creatinine 0.5, Estimat Glomerular Filtration Rate > 60, Glucose Level 70L, Plasma/Serum Osmolality [Pending], Uric Acid 1.3L, Calcium Level 6.9L, Phosphorus Level 1.7L , Magnesium Level 0.9*L, Iron Level 12L, Total Iron Binding Capacity 78L, Percent Iron Saturation 15, Unsaturated Iron Binding 66L, Ferritin 880H, Total Bilirubin 0.8, Gamma Glutamyl Transpeptidase 41H, Aspartate Amino Transf (AST/ SGOT) 18, Alanine Aminotransferase (ALT/SGPT) 12, Alkaline Phosphatase 61, Ammonia 55H, Total Creatine Kinase 40, C-Reactive Protein, Quantitative 24.1H, Pro-B-Type Natriuretic Peptide 766H, Total Protein 4.0L, Albumin 1.7L, Globulin 2.3, Albumin/Globulin Ratio 0.7L, Triglycerides Level 55, Cholesterol Level 49, LDL Cholesterol 30L, HDL Cholesterol 8, Cholesterol/HDL Ratio 6.1H, Lipase 9, Carcinoembryonic Antigen 8.4H, Vitamin B12 Level 1476H, Folate [Pending], Thyroid Stimulating Hormone (TSH) 2.200, Free Thyroxine 1.22, HIV (1&2) Antibody Rapid Negative Height (Feet): 5 Height (Inches): 1.00 Weight (Pounds): 130 General Appearance: no apparent distress Objective PE not changed SILVIO SCHROEDER Nov 27, 2016 12:00
[2016-11-27] MEDS ORDERED: Sodium Phosphate 30 MM in NS 275 ML IVPB ONE (13:30)
[2016-11-27] MEDS ORDERED: NaCl 3% 500ml 250 ML IV ONE (15:30)
--- NOTE | 2016-11-27 15:37 | Infectious Diseases Prog Note ---
Assessment/Plan Assessment/Plan A: ASSESSMENT: The patient is a 55-year-old female with, Leukocytosis, SP Low-grade fever. Pancolitis Stool for C. diff negative CT : pancolitis, prior esophageal hernia, and chronic calcified pancreatitis. Hepatitis panel.: Neg COPD. Asthma. PLAN: continue the patient on IV Zosyn and Flagyl d# 2 Stool for culture Stool for ova and parasite. Monitor CBC. Monitor BMP. GI consult following : colonoscopy and biopsy : tomorrow HIV test Subjective Allergies: Coded Allergies: No Known Allergies (Unverified , 09/20/13) Subjective comfortable Objective Vital Signs Last 24 Hour Vital Signs Date Time Temp Pulse Resp B/P Pulse Ox O2 Delivery O2 Flow Rate FiO2 11/27/16 11:28 98.2 95 19 108/49 99 Room Air 11/27/16 07:53 98.4 78 18 97/66 99 Room Air 11/27/16 05:53 99.0 11/27/16 03:45 99.0 108 18 99/64 94 Room Air 11/26/16 23:33 97.9 110 18 99/76 96 Room Air 11/26/16 20:45 96.8 11/26/16 20:00 96.8 108 20 109/75 96 Room Air 11/26/16 16:00 97.7 95 19 104/62 100 Room Air Height (Feet): 5 Height (Inches): 1.00 Weight (Pounds): 130 HEENT: anicteric Respiratory/Chest: normal breath sounds Cardiovascular: regularly irregular Abdomen: non distended Microbiology Date/Time Source Procedure Growth Status 11/25/16 16:05 Blood Blood Culture - Preliminary NO GROWTH AFTER 24 HOURS Resulted 11/25/16 16:05 Blood Blood Culture - Preliminary NO GROWTH AFTER 24 HOURS Resulted 11/25/16 15:00 Stool Clostridium difficile Toxin Assay - Final Complete Laboratory Tests Test 11/27/16 03:00 11/27/16 04:55 Urine Osmolality Pending Reticulocyte Count 1.5 % (0.0-2.0) Sodium Level 126 mEQ/L (135-145) L Potassium Level 3.3 mEQ/L (3.4-4.9) L Chloride Level 93 mEQ/L (98-107) L Carbon Dioxide Level 20 mEQ/L (20-30) Anion Gap 13 (5-15) Blood Urea Nitrogen 9 mg/dL (7-23) Creatinine 0.5 mg/dL (0.5-0.9) Estimat Glomerular Filtration Rate > 60 mL/min (>60) Glucose Level 70 mg/dL (74-106) L Plasma/Serum Osmolality Pending Uric Acid 1.3 mg/dL (3.0-7.5) L Calcium Level 6.9 mg/dL (8.6-10.2) L Phosphorus Level 1.7 mg/dL (2.5-4.8) L Magnesium Level 0.9 mg/dL (1.7-2.5) *L Iron Level 12 ug/dL (37-145) L Total Iron Binding Capacity 78 ug/dL (250-400) L Percent Iron Saturation 15 % (15-50) Unsaturated Iron Binding 66 ug/dL (112-346) L Ferritin 880 ng/mL (13-150) H Total Bilirubin 0.8 mg/dL (0.0-1.2) Gamma Glutamyl Transpeptidase 41 U/L (5-36) H Aspartate Amino Transf (AST/SGOT) 18 U/L (5-40) Alanine Aminotransferase (ALT/SGPT) 12 U/L (3-33) Alkaline Phosphatase 61 U/L (35-104) Ammonia 55 umol/L (11-51) H Total Creatine Kinase 40 U/L (26-140) C-Reactive Protein, Quantitative 24.1 mg/dL (< 0.5) H Pro-B-Type Natriuretic Peptide 766 pg/mL (0-125) H Total Protein 4.0 g/dL (6.6-8.7) L Albumin 1.7 g/dL (3.5-5.2) L Globulin 2.3 g/dL Albumin/Globulin Ratio 0.7 (1.0-2.7) L Triglycerides Level 55 mg/dL (< 150) Cholesterol Level 49 mg/dL (< 200) LDL Cholesterol 30 mg/dL (60-99) L HDL Cholesterol 8 mg/dL (> 60) Cholesterol/HDL Ratio 6.1 (3.3-4.4) H Lipase 9 U/L (< 60) Carcinoembryonic Antigen 8.4 ng/mL H Vitamin B12 Level 1476 pg/mL (211-946) H Folate Pending Thyroid Stimulating Hormone (TSH) 2.200 uIU/mL (0.300-4.500) Free Thyroxine 1.22 ng/dL (0.86-1.85) HIV (1&2) Antibody Rapid Negative (NEGATIVE) Current Medications Medications (Trade) Dose Ordered Sig/Pebbles Route PRN Reason Start Time Stop Time Status Last Admin Dose Admin Acetaminophen (Tylenol) 650 mg Q4H PRN ORAL fever 11/26/16 20:00 12/26/16 19:59 Bisacodyl (Dulcolax) 10 mg ONCE ONCE ORAL 11/27/16 16:00 11/27/16 16:01 Dextrose (Dextrose 50%) STAT PRN IV Hypoglycemia 11/27/16 16:00 12/27/16 15:59 Diphenhydramine HCl (Benadryl) 25 mg Q6H PRN ORAL Itching/Pruritis 11/26/16 22:00 12/26/16 21:59 Heparin Sodium (Porcine) (Heparin 5000 units/ml) 5,000 units EVERY 12 HOURS SUBQ 11/26/16 21:00 12/26/16 20:59 11/27/16 08:57 Magnesium Citrate (Citrate Of Magnesia) 300 ml ONCE ONCE ORAL 11/27/16 16:00 11/27/16 16:01 Metronidazole 100 ml @ 100 mls/hr Q8HR IVPB 11/26/16 22:00 12/03/16 21:59 11/27/16 13:58 Morphine Sulfate (Morphine Sulfate) 2 mg Q4H PRN IVP moderat Pain (Pain Scale 4-6) 11/27/16 00:00 12/04/16 00:00 Morphine Sulfate (Morphine Sulfate) 4 mg Q4H PRN IVP For severe pain 7-10 11/26/16 22:30 12/03/16 22:29 11/27/16 05:22 Nitroglycerin (Ntg) 0.4 mg Q5M X 3 DOSES PRN SL Prn Chest Pain 11/26/16 17:30 12/26/16 17:29 Ondansetron HCl (Zofran) 4 mg Q6H PRN IVP Nausea & Vomiting 11/26/16 22:00 12/26/16 21:59 Pantoprazole (Protonix) 40 mg BID IVP 11/26/16 18:00 12/26/16 17:59 7/19/17 08:59 Piperacillin Sod/ Tazobactam Sod/ Dextrose (Zosyn/D5W) 110 ml @ 27.5 mls/hr EVERY 8 HOURS IVPB 11/26/16 22:00 12/03/16 21:59 11/27/16 13:58 Polyethylene Glycol (Miralax) 17 gm HSPRN PRN ORAL Constipation 11/27/16 16:00 12/27/16 15:59 Polyethylene Glycol (Miralax) 238 gm ONCE ONCE ORAL 11/27/16 16:00 11/27/16 16:01 Sodium Phosphate (Fleet's Sodium Phosl Enema) 133 ml ONCE ONCE RECTAL 11/27/16 23:00 11/27/16 23:01 Temazepam (Restoril) 15 mg HSPRN PRN ORAL Insomnia 11/27/16 16:00 12/04/16 15:59 JOE JACOBSEN M.D. Nov 27, 2016 15:37
[2016-11-27] MEDS ORDERED: Bisacodyl EC 5mg tab ORAL ONE (16:00)
[2016-11-27] MEDS ORDERED: Magnesium Citrate Liq Btl ORAL ONE (16:00)
[2016-11-27] MEDS ORDERED: Polyethylene Glycol 238gm bottle ORAL ONE (16:00)
[2016-11-27] MEDS ORDERED: Miralax 17gm pkt ORAL PRN (16:00)
--- NOTE | 2016-11-27 16:29 | Pulmonology Progress Note ---
Assessment/Plan Problems: (1) Pancolitis (2) Sepsis (3) Hyponatremia (4) abodminal hernia (5) Alcohol abuse Assessment/Plan iv abx gi evaluation panculture stool for c/s Subjective Interval Events: 11/26 late note Allergies: Coded Allergies: No Known Allergies (Unverified , 09/20/13) Objective Last 24 Hour Vital Signs Date Time Temp Pulse Resp B/P Pulse Ox O2 Delivery O2 Flow Rate FiO2 11/27/16 16:15 97.9 88 18 103/69 98 Room Air 11/27/16 11:28 98.2 95 19 108/49 99 Room Air 11/27/16 07:53 98.4 78 18 97/66 99 Room Air 11/27/16 05:53 99.0 11/27/16 03:45 99.0 108 18 99/64 94 Room Air 11/26/16 23:33 97.9 110 18 99/76 96 Room Air 11/26/16 20:45 96.8 11/26/16 20:00 96.8 108 20 109/75 96 Room Air Intake and Output 11/26/16 11/27/16 19:00 07:00 Intake Total 977.5 ml 597.5 ml Balance 977.5 ml 597.5 ml Intake Oral 260 ml IV Total 977.5 ml 337.5 ml # Voids 1 3 General Appearance: cachetic HEENT: normocephalic, anicteric Respiratory/Chest: chest wall non-tender, normal breath sounds Abdomen: normal bowel sounds, soft, non tender Extremities: no cyanosis Skin: no rash 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, 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, normal mood/ affect Microbiology Date/Time Source Procedure Growth Status 11/25/16 16:05 Blood Blood Culture - Preliminary NO GROWTH AFTER 24 HOURS Resulted 11/25/16 16:05 Blood Blood Culture - Preliminary NO GROWTH AFTER 24 HOURS Resulted 11/25/16 15:00 Stool Clostridium difficile Toxin Assay - Final Complete Laboratory Tests 11/27/16 03:00: Urine Osmolality [Pending] 11/27/16 04:55: Reticulocyte Count 1.5, Sodium Level 126L, Potassium Level 3.3L, Chloride Level 93L, Carbon Dioxide Level 20, Anion Gap 13, Blood Urea Nitrogen 9, Creatinine 0.5, Estimat Glomerular Filtration Rate > 60, Glucose Level 70L, Plasma/Serum Osmolality [Pending], Uric Acid 1.3L, Calcium Level 6.9L, Phosphorus Level 1.7L , Magnesium Level 0.9*L, Iron Level 12L, Total Iron Binding Capacity 78L, Percent Iron Saturation 15, Unsaturated Iron Binding 66L, Ferritin 880H, Total Bilirubin 0.8, Gamma Glutamyl Transpeptidase 41H, Aspartate Amino Transf (AST/ SGOT) 18, Alanine Aminotransferase (ALT/SGPT) 12, Alkaline Phosphatase 61, Ammonia 55H, Total Creatine Kinase 40, C-Reactive Protein, Quantitative 24.1H, Pro-B-Type Natriuretic Peptide 766H, Total Protein 4.0L, Albumin 1.7L, Globulin 2.3, Albumin/Globulin Ratio 0.7L, Triglycerides Level 55, Cholesterol Level 49, LDL Cholesterol 30L, HDL Cholesterol 8, Cholesterol/HDL Ratio 6.1H, Lipase 9, Carcinoembryonic Antigen 8.4H, Vitamin B12 Level 1476H, Folate [Pending], Thyroid Stimulating Hormone (TSH) 2.200, Free Thyroxine 1.22, HIV (1&2) Antibody Rapid Negative Current Medications Medications (Trade) Dose Ordered Sig/Pebbles Route PRN Reason Start Time Stop Time Status Last Admin Dose Admin Acetaminophen (Tylenol) 650 mg Q4H PRN ORAL fever 11/26/16 20:00 12/26/16 19:59 Dextrose (Dextrose 50%) STAT PRN IV Hypoglycemia 11/27/16 16:00 12/27/16 15:59 Diphenhydramine HCl (Benadryl) 25 mg Q6H PRN ORAL Itching/Pruritis 11/26/16 22:00 12/26/16 21:59 Heparin Sodium (Porcine) (Heparin 5000 units/ml) 5,000 units EVERY 12 HOURS SUBQ 11/26/16 21:00 12/26/16 20:59 11/27/16 08:57 Metronidazole 100 ml @ 100 mls/hr Q8HR IVPB 11/26/16 22:00 12/03/16 21:59 11/27/16 13:58 Morphine Sulfate (Morphine Sulfate) 2 mg Q4H PRN IVP moderat Pain (Pain Scale 4-6) 11/27/16 00:00 12/04/16 00:00 Morphine Sulfate (Morphine Sulfate) 4 mg Q4H PRN IVP For severe pain 7-11/26/16 22:30 12/03/16 22:29 11/27/16 05:22 Nitroglycerin (Ntg) 0.4 mg Q5M X 3 DOSES PRN SL Prn Chest Pain 11/26/16 17:30 12/26/16 17:29 Ondansetron HCl (Zofran) 4 mg Q6H PRN IVP Nausea & Vomiting 11/26/16 22:00 12/26/16 21:59 Pantoprazole (Protonix) 40 mg BID IVP 11/26/16 18:00 12/26/16 17:59 11/27/16 08:59 Piperacillin Sod/ Tazobactam Sod/ Dextrose (Zosyn/D5W) 110 ml @ 27.5 mls/hr EVERY 8 HOURS IVPB 11/26/16 22:00 12/03/16 21:59 11/27/16 13:58 Polyethylene Glycol (Miralax) 17 gm HSPRN PRN ORAL Constipation 11/27/16 16:00 12/27/16 15:59 Sodium Phosphate (Fleet's Sodium Phosl Enema) 133 ml ONCE ONCE RECTAL 11/27/16 23:00 11/27/16 23:01 Temazepam (Restoril) 15 mg HSPRN PRN ORAL Insomnia 11/27/16 16:00 12/04/16 15:59 JESSICA GARCIA Nov 27, 2016 16:29
--- NOTE | 2016-11-27 16:31 | Pulmonology Progress Note ---
Assessment/Plan Problems: (1) Pancolitis (2) Sepsis (3) Hyponatremia (4) abodminal hernia (5) Alcohol abuse Assessment/Plan iv abx gi evaluation panculture stool for c/s for endoscopy in am Subjective ROS Limited/Unobtainable: No Constitutional: Reports: no symptoms HEENT: Repors: no symptoms Respiratory: Reports: no symptoms Allergies: Coded Allergies: No Known Allergies (Unverified , 09/20/13) Objective Last 24 Hour Vital Signs Date Time Temp Pulse Resp B/P Pulse Ox O2 Delivery O2 Flow Rate FiO2 11/27/16 16:15 97.9 88 18 103/69 98 Room Air 11/27/16 11:28 98.2 95 19 108/49 99 Room Air 11/27/16 07:53 98.4 78 18 97/66 99 Room Air 11/27/16 05:53 99.0 11/27/16 03:45 99.0 108 18 99/64 94 Room Air 11/26/16 23:33 97.9 110 18 99/76 96 Room Air 11/26/16 20:45 96.8 11/26/16 20:00 96.8 108 20 109/75 96 Room Air Intake and Output 11/26/16 11/27/16 19:00 07:00 Intake Total 977.5 ml 597.5 ml Balance 977.5 ml 597.5 ml Intake Oral 260 ml IV Total 977.5 ml 337.5 ml # Voids 1 3 General Appearance: WD/WN HEENT: normocephalic, atraumatic Respiratory/Chest: chest wall non-tender, lungs clear, normal breath sounds Cardiovascular: normal peripheral pulses, normal rate Abdomen: normal bowel sounds, no organomegaly Extremities: no cyanosis Skin: no rash 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, 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 Microbiology Date/Time Source Procedure Growth Status 11/25/16 16:05 Blood Blood Culture - Preliminary NO GROWTH AFTER 24 HOURS Resulted 11/25/16 16:05 Blood Blood Culture - Preliminary NO GROWTH AFTER 24 HOURS Resulted 11/25/16 15:00 Stool Clostridium difficile Toxin Assay - Final Complete Laboratory Tests 11/27/16 03:00: Urine Osmolality [Pending] 11/27/16 04:55: Reticulocyte Count 1.5, Sodium Level 126L, Potassium Level 3.3L, Chloride Level 93L, Carbon Dioxide Level 20, Anion Gap 13, Blood Urea Nitrogen 9, Creatinine 0.5, Estimat Glomerular Filtration Rate > 60, Glucose Level 70L, Plasma/Serum Osmolality [Pending], Uric Acid 1.3L, Calcium Level 6.9L, Phosphorus Level 1.7L , Magnesium Level 0.9*L, Iron Level 12L, Total Iron Binding Capacity 78L, Percent Iron Saturation 15, Unsaturated Iron Binding 66L, Ferritin 880H, Total Bilirubin 0.8, Gamma Glutamyl Transpeptidase 41H, Aspartate Amino Transf (AST/ SGOT) 18, Alanine Aminotransferase (ALT/SGPT) 12, Alkaline Phosphatase 61, Ammonia 55H, Total Creatine Kinase 40, C-Reactive Protein, Quantitative 24.1H, Pro-B-Type Natriuretic Peptide 766H, Total Protein 4.0L, Albumin 1.7L, Globulin 2.3, Albumin/Globulin Ratio 0.7L, Triglycerides Level 55, Cholesterol Level 49, LDL Cholesterol 30L, HDL Cholesterol 8, Cholesterol/HDL Ratio 6.1H, Lipase 9, Carcinoembryonic Antigen 8.4H, Vitamin B12 Level 1476H, Folate [Pending], Thyroid Stimulating Hormone (TSH) 2.200, Free Thyroxine 1.22, HIV (1&2) Antibody Rapid Negative Current Medications Medications (Trade) Dose Ordered Sig/Pebbles Route PRN Reason Start Time Stop Time Status Last Admin Dose Admin Acetaminophen (Tylenol) 650 mg Q4H PRN ORAL fever 11/26/16 20:00 12/26/16 19:59 Dextrose (Dextrose 50%) STAT PRN IV Hypoglycemia 11/27/16 16:00 12/27/16 15:59 Diphenhydramine HCl (Benadryl) 25 mg Q6H PRN ORAL Itching/Pruritis 11/26/16 22:00 12/26/16 21:59 Heparin Sodium (Porcine) (Heparin 5000 units/ml) 5,000 units EVERY 12 HOURS SUBQ 11/26/16 21:00 12/26/16 20:59 11/27/16 08:57 Metronidazole 100 ml @ 100 mls/hr Q8HR IVPB 11/26/16 22:00 12/03/16 21:59 11/27/16 13:58 Morphine Sulfate (Morphine Sulfate) 2 mg Q4H PRN IVP moderat Pain (Pain Scale 4-6) 11/27/16 00:00 12/04/16 00:00 Morphine Sulfate (Morphine Sulfate) 4 mg Q4H PRN IVP For severe pain 7-11/26/16 22:30 12/03/16 22:29 11/27/16 05:22 Nitroglycerin (Ntg) 0.4 mg Q5M X 3 DOSES PRN SL Prn Chest Pain 11/26/16 17:30 12/26/16 17:29 Ondansetron HCl (Zofran) 4 mg Q6H PRN IVP Nausea & Vomiting 11/26/16 22:00 12/26/16 21:59 Pantoprazole (Protonix) 40 mg BID IVP 11/26/16 18:00 12/26/16 17:59 11/27/16 08:59 Piperacillin Sod/ Tazobactam Sod/ Dextrose (Zosyn/D5W) 110 ml @ 27.5 mls/hr EVERY 8 HOURS IVPB 11/26/16 22:00 12/03/16 21:59 11/27/16 13:58 Polyethylene Glycol (Miralax) 17 gm HSPRN PRN ORAL Constipation 11/27/16 16:00 12/27/16 15:59 Sodium Phosphate (Fleet's Sodium Phosl Enema) 133 ml ONCE ONCE RECTAL 11/27/16 23:00 11/27/16 23:01 Temazepam (Restoril) 15 mg HSPRN PRN ORAL Insomnia 11/27/16 16:00 12/04/16 15:59 JESSICA GARCIA Nov 27, 2016 16:31
--- NOTE | 2016-11-27 16:48 | Cardiology Report ---
APPROVED REPORT EKG Measurement Heart [id number] ND 180P67 [id number] Normal sinus rhythm Prolonged QT Abnormal ECG
[2016-11-27] MEDS ORDERED: Fleet's Enema 133ml RECTAL ONE (23:00)
[2016-11-28] VITALS (10 sets, daily range): BP systolic 95–110; BP diastolic 52–81
[2016-11-28] MEDS: metroNIDAZOLE 500mg 100 ML IVPB SCH ×3 (06:00→22:00)
[2016-11-28] MEDS: Piperacillin/Tazobactam 3.375 GM in D5W 110 ML IVPB SCH ×3 (06:00→22:00)
[2016-11-28] MEDS: Morphine Sulfate 4mg/ml Inj IVP PRN ×4 (06:25→20:45)
[2016-11-28 07:34] LABS: ALANINE AMINOTRANSFERASE 13 U/L (3-33); ALBUMIN/GLOBULIN RATIO 0.4 (1.0-2.7); ASPARTATE AMINO TRANSFERASE 25 U/L (5-40); CALCIUM 7.4 mg/dL (8.6-10.2); CARBON DIOXIDE 21 mEQ/L (20-30); CHLORIDE 94 mEQ/L (98-107); CREATININE 0.5 mg/dL (0.5-0.9); CRP QUANT 23.4 mg/dL (< 0.5); GLOMERULAR FILTRATION RATE > 60 mL/min (>60); HEMOLYSIS 4; MAGNESIUM 1.4 mg/dL (1.7-2.5); PHOSPHORUS 2.3 mg/dL (2.5-4.8); SODIUM 125 mEQ/L (135-145); TOTAL PROTEIN 4.8 g/dL (6.6-8.7); URIC ACID 1.2 mg/dL (3.0-7.5)
[2016-11-28 07:35] LABS: MEAN CORPUSCULAR HEMOGLOBIN 31.8 PG (27.0-31.0); MEAN CORPUSCULAR HGB CONC 33.7 G/DL (32.0-36.0); MEAN CORPUSCULAR VOLUME 94 FL (80-99); MEAN PLATELET VOLUME 8.3 FL (6.5-10.1); PLATELET COUNT 376 K/UL (150-450); RED BLOOD COUNT 3.32 M/UL (4.20-5.40); RED CELL DISTRIBUTION WIDTH 11.5 % (11.6-14.8); WHITE BLOOD COUNT 14.5 K/UL (4.8-10.8)
[2016-11-28 07:42] LABS: PROTHROMBIN TIME 10.5 SEC (9.30-11.50)
[2016-11-28 08:00] LABS: ANION GAP 10 (5-15)
[2016-11-28 08:01] LABS: POTASSIUM 2.7 mEQ/L (3.4-4.9)
[2016-11-28] MEDS: Heparin 5000 units/ml inj SUBQ SCH ×2 (09:00→22:08)
[2016-11-28] MEDS: Pantoprazole Inj IVP SCH ×2 (09:00→11:03)
--- NOTE | 2016-11-28 10:11 | Infectious Diseases Prog Note ---
Assessment/Plan Assessment/Plan A: ASSESSMENT: The patient is a 55-year-old female with, Leukocytosis, mild Low-grade fever. SP Pancolitis Stool for C. diff negative CT : pancolitis, prior esophageal hernia, and chronic calcified pancreatitis. no diarrhea Hepatitis panel and HIV : Neg COPD. Asthma. PLAN: continue the patient on IV Zosyn and Flagyl d# 3 /5-7 Stool for culture Stool for ova and parasite. Monitor CBC. Monitor BMP. GI consult following : colonoscopy and biopsy : today Subjective Constitutional: Denies: anorexia, chills, drenching sweats, fatigue, fever, no symptoms, other Allergies: Coded Allergies: No Known Allergies (Unverified , 09/20/13) Subjective comfortable Objective Vital Signs Last 24 Hour Vital Signs Date Time Temp Pulse Resp B/P Pulse Ox O2 Delivery O2 Flow Rate FiO2 11/28/16 07:59 97.7 88 19 103/65 97 Room Air 11/28/16 04:21 97.2 90 20 95/52 94 Room Air 11/27/16 23:50 98.1 101 20 153/95 97 Room Air 11/27/16 20:00 96/55 11/27/16 19:26 97.7 98 20 81/58 99 Room Air 11/27/16 16:15 97.9 88 18 103/69 98 Room Air 11/27/16 11:28 98.2 95 19 108/49 99 Room Air Height (Feet): 5 Height (Inches): 5.00 Weight (Pounds): 130 HEENT: mucous membranes moist Respiratory/Chest: no respiratory distress Cardiovascular: regular rhythm Abdomen: no organomegaly Microbiology Date/Time Source Procedure Growth Status 11/25/16 16:05 Blood Blood Culture - Preliminary NO GROWTH AFTER 48 HOURS Resulted 11/25/16 16:05 Blood Blood Culture - Preliminary NO GROWTH AFTER 48 HOURS Resulted 11/25/16 15:00 Stool Clostridium difficile Toxin Assay - Final Complete Laboratory Tests Test 11/28/16 04:50 White Blood Count 14.5 K/UL (4.8-10.8) H Red Blood Count 3.32 M/UL (4.20-5.40) L Hemoglobin 10.5 G/DL (12.0-16.0) L Hematocrit 31.2 % (37.0-47.0) L Mean Corpuscular Volume 94 FL (80-99) Mean Corpuscular Hemoglobin 31.8 PG (27.0-31.0) H Mean Corpuscular Hemoglobin Concent 33.7 G/DL (32.0-36.0) Red Cell Distribution Width 11.5 % (11.6-14.8) L Platelet Count 376 K/UL (150-450) Mean Platelet Volume 8.3 FL (6.5-10.1) Neutrophils (%) (Auto) % (45.0-75.0) Lymphocytes (%) (Auto) % (20.0-45.0) Monocytes (%) (Auto) % (1.0-10.0) Eosinophils (%) (Auto) % (0.0-3.0) Basophils (%) (Auto) % (0.0-2.0) Neutrophils % (Manual) Pending Lymphocytes % (Manual) Pending Platelet Estimate Pending Platelet Morphology Pending Prothrombin Time 10.5 SEC (9.30-11.50) Prothromb Time International Ratio 1.0 (0.9-1.1) Activated Partial Thromboplast Time 38 SEC (23-33) H Sodium Level 125 mEQ/L (135-145) L Potassium Level 2.7 mEQ/L (3.4-4.9) *L Chloride Level 94 mEQ/L (98-107) L Carbon Dioxide Level 21 mEQ/L (20-30) Anion Gap 10 (5-15) Blood Urea Nitrogen 8 mg/dL (7-23) Creatinine 0.5 mg/dL (0.5-0.9) Estimat Glomerular Filtration Rate > 60 mL/min (>60) Glucose Level 101 mg/dL (74-106) Uric Acid 1.2 mg/dL (3.0-7.5) L Calcium Level 7.4 mg/dL (8.6-10.2) L Phosphorus Level 2.3 mg/dL (2.5-4.8) L Magnesium Level 1.4 mg/dL (1.7-2.5) L Total Bilirubin 0.7 mg/dL (0.0-1.2) Aspartate Amino Transf (AST/SGOT) 25 U/L (5-40) Alanine Aminotransferase (ALT/SGPT) 13 U/L (3-33) Alkaline Phosphatase 87 U/L (35-104) C-Reactive Protein, Quantitative 23.4 mg/dL (< 0.5) H Pro-B-Type Natriuretic Peptide 398 pg/mL (0-125) H Total Protein 4.8 g/dL (6.6-8.7) L Albumin 1.5 g/dL (3.5-5.2) L Globulin 3.3 g/dL Albumin/Globulin Ratio 0.4 (1.0-2.7) L Current Medications Medications (Trade) Dose Ordered Sig/Pebbles Route PRN Reason Start Time Stop Time Status Last Admin Dose Admin Acetaminophen (Tylenol) 650 mg Q4H PRN ORAL fever 11/26/16 20:00 12/26/16 19:59 Dextrose (Dextrose 50%) STAT PRN IV Hypoglycemia 11/27/16 16:00 12/27/16 15:59 Diphenhydramine HCl (Benadryl) 25 mg Q6H PRN ORAL Itching/Pruritis 11/26/16 22:00 12/26/16 21:59 Heparin Sodium (Porcine) (Heparin 5000 units/ml) 5,000 units EVERY 12 HOURS SUBQ 11/26/16 21:00 12/26/16 20:59 11/27/16 08:57 Metronidazole 100 ml @ 100 mls/hr Q8HR IVPB 11/26/16 22:00 12/03/16 21:59 11/28/16 06:00 Morphine Sulfate (Morphine Sulfate) 2 mg Q4H PRN IVP moderat Pain (Pain Scale 4-6) 11/27/16 00:00 12/04/16 00:00 Morphine Sulfate (Morphine Sulfate) 4 mg Q4H PRN IVP For severe pain 7-10 11/26/16 22:30 12/03/16 22:29 11/28/16 06:25 Nitroglycerin (Ntg) 0.4 mg Q5M X 3 DOSES PRN SL Prn Chest Pain 11/26/16 17:30 12/26/16 17:29 Ondansetron HCl (Zofran) 4 mg Q6H PRN IVP Nausea & Vomiting 11/26/16 22:00 12/26/16 21:59 Pantoprazole (Protonix) 40 mg BID IVP 11/26/16 18:00 12/26/16 17:59 7/19/17 17:08 Piperacillin Sod/ Tazobactam Sod/ Dextrose (Zosyn/D5W) 110 ml @ 27.5 mls/hr EVERY 8 HOURS IVPB 11/26/16 22:00 12/03/16 21:59 11/28/16 06:00 Polyethylene Glycol (Miralax) 17 gm HSPRN PRN ORAL Constipation 11/27/16 16:00 12/27/16 15:59 Temazepam (Restoril) 15 mg HSPRN PRN ORAL Insomnia 11/27/16 16:00 12/04/16 15:59 JOE JACOBSEN M.D. Nov 28, 2016 10:11
[2016-11-28] MEDS ORDERED: NS 275ml ONE (10:45)
[2016-11-28 11:44] LABS: BAND NEUTROPHILS % (MANUAL) 11 % (0-8); EOSINOPHILS % (MANUAL) 2 % (0-3); LYMPHOCYTES % (MANUAL) 13 % (20-45); NEUTROPHILS % (MANUAL) 71 % (45-75); TOTAL CELLS COUNTED 100
[2016-11-28 11:45] LABS: BASOPHILS % (MANUAL) 0 % (0-2); PLATELET ESTIMATE ADEQUATE; PLATELET MORPHOLOGY NORMAL
[2016-11-28 11:49] LABS: TOXIC GRANULATION OCCASIONAL
[2016-11-28] MEDS ORDERED: Lidocaine 1% MPF 10mg/ml 5ml ONE (12:00)
[2016-11-28] MEDS ORDERED: LR 1000ml ONE (12:00)
[2016-11-28] MEDS ORDERED: NS 550ML IV ONE (12:00)
[2016-11-28] MEDS ORDERED: Propofol 10mg/ml 20ml IV ONE (12:00)
--- NOTE | 2016-11-28 12:06 | Pre-Procedure Note/Attestation ---
Pre-Procedure Note/Attestation Complete Prior to Procedure Planned Procedure: not applicable Procedure Narrative: egd/colon Indications for Procedure Pre-Operative Diagnosis: anemia Attestation I attest that I discussed the nature of the procedure; its benefits; risks and complications; and alternatives (and the risks and benefits of such alternatives ), prior to the procedure, with the patient (or the patient's legal solar sales representative and assessor). I attest that, if there was a reasonable possibility of needing a blood transfusion, the patient (or the patient's legal solar sales representative and assessor) was given the [facility] standardized written summary, pursuant to the [place] [place] Blood Safety Act ([place] Health and Safety Code # 1645, as amended). I attest that I re-evaluated the patient just prior to the surgery and that there has been no change in the patient's H&P, except as documented below: DENNIS NEVES Nov 28, 2016 12:06
--- NOTE | 2016-11-28 12:32 | Endoscopy Procedure Note ---
Endoscopy Procedure Note Indication for Procedure: colitis Procedures Performed: EGD, colonoscopy Operative Findings/Diagnosis: gastritis Specimen: yes Pt Tolerated Procedure Well: Yes Estimated Blood Loss: none Anesthesiologist: ian Anesthesia: MAC Implant(s) used?: No 50 yrs or older w/o bx or poly: Not Applicable 10yrs. F/U not recommended: Not Applicable DENNIS NEVES Nov 28, 2016 12:32
--- NOTE | 2016-11-28 12:34 | Anethesia Preoperative Eval ---
Anesthesia Pre-op PMH/ROS General Date of Evaluation: Nov 28, 2016 Time of Evaluation: 12:33 Anesthesiologist: boy ASA Score: ASA 3 Mallampati Score Class I : Soft palate, uvula, fauces, pillars visible Class II: Soft palate, uvula, fauces visible Class III: Soft palate, base of uvula visible Class IV: Only hard plate visible Surgeon: katlyn Diagnosis: gastritis Surgical Procedure: EGD/Colon Anesthesia History: none Social History: alcohol use Family History: no anesthesia problems Allergies: Coded Allergies: No Known Allergies (Unverified , 09/20/13) Medications: see eMAR Past Medical History Cardiovascular: Denies: CAD, HTN, AR, arrhythmia, other, valve dz Pulmonary: Reports: COPD Gastrointestinal/Genitourinary: Reports: GERD Neurologic/Psychiatric: Denies: CVA, TIA, dementia, depression/anxiety, other Hematology/Immune: Reports: anemia Musculoskeletal/Integumentary: Denies: DDD, DJD, OA, RA, edema, other PSxH Narrative: carpl tunnel Anesthesia Pre-op Phys. Exam Physician Exam Last Vital Signs Date Time Temp Pulse Resp B/P Pulse Ox O2 Delivery O2 Flow Rate FiO2 11/28/16 11:42 97.9 90 19 106/66 97 Room Air Constitutional: NAD Neurologic: CN 2-12 intact Cardiovascular: RRR Respiratory: CTA Gastrointestinal: S/NT/ND Airway Exam Mallampati Score: Class II MO: full ROM: full Dentures: no lower, no upper Anesthesia Pre-op A/P Labs Hematology Test 11/28/16 04:50 White Blood Count 14.5 K/UL (4.8-10.8) H Red Blood Count 3.32 M/UL (4.20-5.40) L Hemoglobin 10.5 G/DL (12.0-16.0) L Hematocrit 31.2 % (37.0-47.0) L Mean Corpuscular Volume 94 FL (80-99) Mean Corpuscular Hemoglobin 31.8 PG (27.0-31.0) H Mean Corpuscular Hemoglobin Concent 33.7 G/DL (32.0-36.0) Red Cell Distribution Width 11.5 % (11.6-14.8) L Platelet Count 376 K/UL (150-450) Mean Platelet Volume 8.3 FL (6.5-10.1) Neutrophils (%) (Auto) % (45.0-75.0) Lymphocytes (%) (Auto) % (20.0-45.0) Monocytes (%) (Auto) % (1.0-10.0) Eosinophils (%) (Auto) % (0.0-3.0) Basophils (%) (Auto) % (0.0-2.0) Differential Total Cells Counted 100 Neutrophils % (Manual) 71 % (45-75) Lymphocytes % (Manual) 13 % (20-45) L Monocytes % (Manual) 3 % (1-10) Eosinophils % (Manual) 2 % (0-3) Basophils % (Manual) 0 % (0-2) Band Neutrophils 11 % (0-8) H Toxic Granulation Occasional Platelet Estimate Adequate Platelet Morphology Normal Red Blood Cell Morphology Normal Coagulation Test 11/28/16 04:50 Prothrombin Time 10.5 SEC (9.30-11.50) Prothromb Time International Ratio 1.0 (0.9-1.1) Activated Partial Thromboplast Time 38 SEC (23-33) H Chemistry Test 11/28/16 04:50 Sodium Level 125 mEQ/L (135-145) L Potassium Level 2.7 mEQ/L (3.4-4.9) *L Chloride Level 94 mEQ/L (98-107) L Carbon Dioxide Level 21 mEQ/L (20-30) Anion Gap 10 (5-15) Blood Urea Nitrogen 8 mg/dL (7-23) Creatinine 0.5 mg/dL (0.5-0.9) Estimat Glomerular Filtration Rate > 60 mL/min (>60) Glucose Level 101 mg/dL (74-106) Uric Acid 1.2 mg/dL (3.0-7.5) L Calcium Level 7.4 mg/dL (8.6-10.2) L Phosphorus Level 2.3 mg/dL (2.5-4.8) L Magnesium Level 1.4 mg/dL (1.7-2.5) L Total Bilirubin 0.7 mg/dL (0.0-1.2) Aspartate Amino Transf (AST/SGOT) 25 U/L (5-40) Alanine Aminotransferase (ALT/SGPT) 13 U/L (3-33) Alkaline Phosphatase 87 U/L (35-104) C-Reactive Protein, Quantitative 23.4 mg/dL (< 0.5) H Pro-B-Type Natriuretic Peptide 398 pg/mL (0-125) H Total Protein 4.8 g/dL (6.6-8.7) L Albumin 1.5 g/dL (3.5-5.2) L Globulin 3.3 g/dL Albumin/Globulin Ratio 0.4 (1.0-2.7) L Studies Pre-op Studies: EKG - sr Risk Assessment & Plan Plan: mac Status Change Before Surgery: No Pre-Antibiotics Drug: none ZACHARY AG CRNA Nov 28, 2016 12:34
--- NOTE | 2016-11-28 12:45 | Immediate Post-Op Evaluation ---
Immediate Post-Op Evalulation Immediate Post-Op Evalulation Procedure: egd colonoscopy Date of Evaluation: Nov 28, 2016 Time of Evaluation: 12:40 Blood Pressure Systolic: 100 Blood Pressure Diastolic: 60 Pulse Rate: 75 Respiratory Rate: 14 O2 Sat by Pulse Oximetry: 100 Temperature (Fahrenheit): 97.5 Nausea: No Vomiting: No Complications none Patient Status: awake, reacts, patent Hydration Status: adequate Drug: none ZACHARY AG CRNA Nov 28, 2016 12:45
--- NOTE | 2016-11-28 12:51 | 48 Hour Post Anesthesia Eval ---
Post Anesthesia Evaluation Procedure: egd colonoscopy Date of Evaluation: Nov 28, 2016 Time of Evaluation: 12:52 Blood Pressure Systolic: 102 0: 60 Pulse Rate: 72 Respiratory Rate: 14 O2 Sat by Pulse Oximetry: 100 Airway: patent Nausea: No Vomiting: No Hydration Status: adequate Mental Status/LOC: patient returned to baseline Post-Anesthesia Complications: none Follow-up care needed: N/A ZACHARY AG CRNA Nov 28, 2016 12:51
[2016-11-28] MEDS ORDERED: Potassium Phosphate 30 MM in NS 275 ML IV ONE ×2 (15:30→19:30)
--- NOTE | 2016-11-28 15:58 | General Progress Note ---
Assessment/Plan Status: doing well Assessment/Plan status: Abdominal pain Hyponatremia improving Hypokalemia improving Sepsis Pancolitis Alcohol abuse HypoAlbuminemia Anemia stool OB + Plan: KCL IV and Na Phos and Mag po fluid restriction urine studies- Monitor lytes Subjective ROS Limited/Unobtainable: No Constitutional: Reports: malaise, weakness Allergies: Coded Allergies: No Known Allergies (Unverified , 09/20/13) Objective Last 24 Hour Vital Signs Date Time Temp Pulse Resp B/P Pulse Ox O2 Delivery O2 Flow Rate FiO2 11/28/16 13:07 79 17 106/81 98 Room Air 11/28/16 13:00 97.6 78 16 110/79 98 Room Air 11/28/16 12:51 72 14 100 11/28/16 12:50 76 18 106/77 100 Nasal Cannula 3.0 11/28/16 12:45 73 15 102/72 100 Nasal Cannula 3.0 11/28/16 12:45 75 14 100 11/28/16 12:40 97.8 75 18 97/73 100 Nasal Cannula 3.0 11/28/16 11:42 97.9 90 19 106/66 97 Room Air 11/28/16 07:59 97.7 88 19 103/65 97 Room Air 11/28/16 04:21 97.2 90 20 95/52 94 Room Air 11/27/16 23:50 98.1 101 20 153/95 97 Room Air 11/27/16 20:00 96/55 11/27/16 19:26 97.7 98 20 81/58 99 Room Air 11/27/16 16:15 97.9 88 18 103/69 98 Room Air Intake and Output 11/27/16 11/28/16 19:00 07:00 Intake Total 891.664 ml 210.0 ml Output Total 4 ml Balance 891.664 ml 206.0 ml IV Total 891.664 ml 210.0 ml Output Stool Total 4 ml # Voids 5 # Bowel Movements 4 Laboratory Tests 11/28/16 04:50: White Blood Count 14.5H, Red Blood Count 3.32L, Hemoglobin 10.5L, Hematocrit 31.2L, Mean Corpuscular Volume 94, Mean Corpuscular Hemoglobin 31.8H, Mean Corpuscular Hemoglobin Concent 33.7, Red Cell Distribution Width 11.5L, Platelet Count 376, Mean Platelet Volume 8.3, Neutrophils (%) (Auto) , Lymphocytes (%) (Auto) , Monocytes (%) (Auto) , Eosinophils (%) (Auto) , Basophils (%) (Auto) , Differential Total Cells Counted 100, Neutrophils % ( Manual) 71, Lymphocytes % (Manual) 13L, Monocytes % (Manual) 3, Eosinophils % ( Manual) 2, Basophils % (Manual) 0, Band Neutrophils 11H, Toxic Granulation Occasional, Platelet Estimate Adequate, Platelet Morphology Normal, Red Blood Cell Morphology Normal, Prothrombin Time 10.5, Prothromb Time International Ratio 1.0, Activated Partial Thromboplast Time 38H, Sodium Level 125L, Potassium Level 2.7*L, Chloride Level 94L, Carbon Dioxide Level 21, Anion Gap 10 , Blood Urea Nitrogen 8, Creatinine 0.5, Estimat Glomerular Filtration Rate > 60 , Glucose Level 101, Uric Acid 1.2L, Calcium Level 7.4L, Phosphorus Level 2.3L, Magnesium Level 1.4L, Total Bilirubin 0.7, Aspartate Amino Transf (AST/SGOT) 25 , Alanine Aminotransferase (ALT/SGPT) 13, Alkaline Phosphatase 87, C-Reactive Protein, Quantitative 23.4H, Pro-B-Type Natriuretic Peptide 398H, Total Protein 4.8L, Albumin 1.5L, Globulin 3.3, Albumin/Globulin Ratio 0.4L Height (Feet): 5 Height (Inches): 5.00 Weight (Pounds): 130 General Appearance: no apparent distress Objective PE not changed SILVIO SCHROEDER Nov 28, 2016 15:58
--- NOTE | 2016-11-28 16:30 | Procedure Note ---
DATE OF PROCEDURE: 11/28/2016 SURGEON: Troy Cervantes M.D. REFERRING PHYSICIAN: Isai Lyons M.D. PROCEDURE: Upper endoscopy with biopsy and colonoscopy with biopsy. ANESTHESIA: Per Chel MONZON. INSTRUMENT: Olympus adult flexible upper endoscope and colonoscope. INDICATION: Anemia, stool OB positive, colitis. The procedure, risks, benefits, and possible consequences, including hemorrhage, aspiration, perforation and infection, and alternative treatments, were explained to the patient/legal guardian by Dr. Troy Cervantes and the patient/legal guardian understood and accepted these risks. DESCRIPTION OF PROCEDURE: After informed consent was obtained and the patient was adequately sedated, Olympus upper endoscope was advanced from the mouth into the second portion of duodenum and retroflexion was performed in the stomach. The patient had diffuse gastritis. Random biopsy from antrum was obtained to rule out H. pylori infection. The patient also has evidence of hiatal hernia. At this time, the upper endoscope was retrieved and the patient was turned over for colonoscopy. Digital rectal examination showed evidence of external hemorrhoids. The scope was advanced from the rectum into the cecum and then subsequently to the terminal ileum. Quality of prep was good. The patient had very abnormal colonoscopy findings. The patient had an ulceration in the terminal ileum, which was biopsied. The patient has the same process going on in the most of the colon. Staring from rectum all the way to the end of the colon, there were areas severe ulcerations, may be pseudopolyp formations. Multiple biopsies from the cecum and ascending colon were obtained. Retroflexion in the rectum showed evidence of internal hemorrhoids. SUMMARY OF FINDINGS: 1. Gastritis, status biopsy. 2. Hiatal hernia. 3. Severe abnormal looking finding in the colon and terminal ileum with ulcerations, inflammations, mucosal atrophy, pseudopolyp formation. Diagnosis at this time unknown. Differential diagnosis is inflammatory bowel disease versus severe infection versus an unusual infection. RECOMMENDATIONS: Follow up biopsy results and we will treat accordingly. I want to thank Dr. Lyons for this kind referral. Troy Cervantes M.D. DR: NESTOR JOB#: [id number] CC: Isai Lyons M.D.; Fax#: [phone]
--- NOTE | 2016-11-28 22:43 | Pulmonology Progress Note ---
Assessment/Plan Problems: (1) Pancolitis (2) Sepsis (3) Hyponatremia (4) abodminal hernia (5) Alcohol abuse Assessment/Plan iv abx gi evaluation panculture stool for c/s for endoscopy in am Subjective Allergies: Coded Allergies: No Known Allergies (Unverified , 09/20/13) Objective Last 24 Hour Vital Signs Date Time Temp Pulse Resp B/P Pulse Ox O2 Delivery O2 Flow Rate FiO2 11/28/16 20:00 98.1 87 20 110/75 98 Room Air 11/28/16 16:00 97.0 90 18 96/69 98 Room Air 11/28/16 13:07 79 17 106/81 98 Room Air 11/28/16 13:00 97.6 78 16 110/79 98 Room Air 11/28/16 12:51 72 14 100 11/28/16 12:50 76 18 106/77 100 Nasal Cannula 3.0 11/28/16 12:45 73 15 102/72 100 Nasal Cannula 3.0 11/28/16 12:45 75 14 100 11/28/16 12:40 97.8 75 18 97/73 100 Nasal Cannula 3.0 11/28/16 11:42 97.9 90 19 106/66 97 Room Air 11/28/16 07:59 97.7 88 19 103/65 97 Room Air 11/28/16 04:21 97.2 90 20 95/52 94 Room Air 11/27/16 23:50 98.1 101 20 153/95 97 Room Air Intake and Output 11/27/16 11/28/16 19:00 07:00 Intake Total 891.664 ml 210.0 ml Output Total 4 ml Balance 891.664 ml 206.0 ml IV Total 891.664 ml 210.0 ml Output Stool Total 4 ml # Voids 5 # Bowel Movements 4 Laboratory Tests 11/28/16 04:50: White Blood Count 14.5H, Red Blood Count 3.32L, Hemoglobin 10.5L, Hematocrit 31.2L, Mean Corpuscular Volume 94, Mean Corpuscular Hemoglobin 31.8H, Mean Corpuscular Hemoglobin Concent 33.7, Red Cell Distribution Width 11.5L, Platelet Count 376, Mean Platelet Volume 8.3, Neutrophils (%) (Auto) , Lymphocytes (%) (Auto) , Monocytes (%) (Auto) , Eosinophils (%) (Auto) , Basophils (%) (Auto) , Differential Total Cells Counted 100, Neutrophils % ( Manual) 71, Lymphocytes % (Manual) 13L, Monocytes % (Manual) 3, Eosinophils % ( Manual) 2, Basophils % (Manual) 0, Band Neutrophils 11H, Toxic Granulation Occasional, Platelet Estimate Adequate, Platelet Morphology Normal, Red Blood Cell Morphology Normal, Prothrombin Time 10.5, Prothromb Time International Ratio 1.0, Activated Partial Thromboplast Time 38H, Sodium Level 125L, Potassium Level 2.7*L, Chloride Level 94L, Carbon Dioxide Level 21, Anion Gap 10 , Blood Urea Nitrogen 8, Creatinine 0.5, Estimat Glomerular Filtration Rate > 60 , Glucose Level 101, Uric Acid 1.2L, Calcium Level 7.4L, Phosphorus Level 2.3L, Magnesium Level 1.4L, Total Bilirubin 0.7, Aspartate Amino Transf (AST/SGOT) 25 , Alanine Aminotransferase (ALT/SGPT) 13, Alkaline Phosphatase 87, C-Reactive Protein, Quantitative 23.4H, Pro-B-Type Natriuretic Peptide 398H, Total Protein 4.8L, Albumin 1.5L, Globulin 3.3, Albumin/Globulin Ratio 0.4L Current Medications Medications (Trade) Dose Ordered Sig/Pebbles Route PRN Reason Start Time Stop Time Status Last Admin Dose Admin Acetaminophen (Tylenol) 650 mg Q4H PRN ORAL fever 11/26/16 20:00 12/26/16 19:59 Dextrose (Dextrose 50%) STAT PRN IV Hypoglycemia 11/27/16 16:00 12/27/16 15:59 Diphenhydramine HCl (Benadryl) 25 mg Q6H PRN ORAL Itching/Pruritis 11/26/16 22:00 12/26/16 21:59 Heparin Sodium (Porcine) (Heparin 5000 units/ml) 5,000 units EVERY 12 HOURS SUBQ 11/26/16 21:00 12/26/16 20:59 11/28/16 22:08 Metronidazole 100 ml @ 100 mls/hr Q8HR IVPB 11/26/16 22:00 12/03/16 21:59 11/28/16 13:52 Morphine Sulfate (Morphine Sulfate) 2 mg Q4H PRN IVP moderat Pain (Pain Scale 4-6) 11/27/16 00:00 12/04/16 00:00 Morphine Sulfate 4 mg 4 mg Q4H PRN IVP For severe pain 7-11/26/16 22:30 12/03/16 22:29 11/28/16 20:45 Nitroglycerin (Ntg) 0.4 mg Q5M X 3 DOSES PRN SL Prn Chest Pain 11/26/16 17:30 12/26/16 17:29 Ondansetron HCl (Zofran) 4 mg Q6H PRN IVP Nausea & Vomiting 11/26/16 22:00 12/26/16 21:59 Pantoprazole (Protonix) 40 mg BID IVP 11/26/16 18:00 12/26/16 17:59 11/28/16 11:03 Piperacillin Sod/ Tazobactam Sod/ Dextrose (Zosyn/D5W) 110 ml @ 27.5 mls/hr EVERY 8 HOURS IVPB 11/26/16 22:00 12/03/16 21:59 11/28/16 15:57 Polyethylene Glycol (Miralax) 17 gm HSPRN PRN ORAL Constipation 11/27/16 16:00 12/27/16 15:59 Potassium Phosphate/Sodium Chloride (Potassium Phosphate/Sodium Chloride) 285 ml @ 47.5 mls/hr ONCE ONCE IV 11/28/16 19:30 11/29/16 01:29 11/28/16 19:30 Temazepam (Restoril) 15 mg HSPRN PRN ORAL Insomnia 11/27/16 16:00 12/04/16 15:59 JESSICA GARCIA Nov 28, 2016 22:43
[2016-11-29 00:02] VITALS: BP 101/63
[2016-11-29] MEDS: Morphine Sulfate 4mg/ml Inj IVP PRN ×4 (03:08→19:00)
[2016-11-29 04:00] VITALS: BP 109/70
[2016-11-29] MEDS: metroNIDAZOLE 500mg 100 ML IVPB SCH ×2 (05:42→14:21)
[2016-11-29] MEDS: Piperacillin/Tazobactam 3.375 GM in D5W 110 ML IVPB SCH ×3 (05:42→22:07)
[2016-11-29 07:23] LABS: ANION GAP 10 (5-15); CALCIUM 7.3 mg/dL (8.6-10.2); CARBON DIOXIDE 21 mEQ/L (20-30); CHLORIDE 89 mEQ/L (98-107); CREATININE 0.4 mg/dL (0.5-0.9); GLOMERULAR FILTRATION RATE > 60 mL/min (>60); HEMOLYSIS 6; POTASSIUM 3.8 mEQ/L (3.4-4.9); SODIUM 120 mEQ/L (135-145)
[2016-11-29 07:24] LABS: MEAN CORPUSCULAR HEMOGLOBIN 32.4 PG (27.0-31.0); MEAN CORPUSCULAR HGB CONC 34.4 G/DL (32.0-36.0); MEAN CORPUSCULAR VOLUME 94 FL (80-99); PLATELET COUNT 424 K/UL (150-450); RED BLOOD COUNT 3.58 M/UL (4.20-5.40); RED CELL DISTRIBUTION WIDTH 11.4 % (11.6-14.8); WHITE BLOOD COUNT 12.7 K/UL (4.8-10.8)
--- NOTE | 2016-11-29 07:56 | Pulmonology Progress Note ---
Assessment/Plan Assessment/Plan ASSESSMENT sepsis pancolitis ETOH abuse abdominal hernia severe hyponatremia e/lyte imbalance ( hypo P, hypo Mg, hypo K) s/p EGD and colonoscopy gastritis severe colon abnormalities -IBD vs severe infection chronic calcified pancreatitis severe protein calorie malnutrition COPD/asthma PLAN OF CARE MS floor IV abx ID follows GI follows s/p EGD and colon with findings of gastritis, s/p biopsy, HH, severe colon abnormalities, s/p bx - IBD vs severe infection started on steroids awaiting for biopsy CT A/P findings c/w pancolitis , chronic calcified pancreatitis hepatitis panel and HIV negative pain management replace lytes as needed ( per nephro today Lasix, added K supplements, Phospho supplements) HH at baseline, monitor ,transfuse prn, keep Hgb above 7, stool OB + O2 HHN prn DVT, GI prophylaxis dietary eval check prealbumin case discussed and evaluated by supervising physician Subjective Allergies: Coded Allergies: No Known Allergies (Unverified , 09/20/13) Subjective leukocytosis trending down afebrile intermittent abdominal pain, diarrhea Objective Last 24 Hour Vital Signs Date Time Temp Pulse Resp B/P Pulse Ox O2 Delivery O2 Flow Rate FiO2 11/29/16 04:00 97.6 81 20 109/70 95 Room Air 11/29/16 03:38 97.6 11/29/16 00:02 97.9 77 20 101/63 93 Room Air 11/28/16 20:00 98.1 87 20 110/75 98 Room Air 11/28/16 16:00 97.0 90 18 96/69 98 Room Air 11/28/16 13:07 79 17 106/81 98 Room Air 11/28/16 13:00 97.6 78 16 110/79 98 Room Air 11/28/16 12:51 72 14 100 11/28/16 12:50 76 18 106/77 100 Nasal Cannula 3.0 11/28/16 12:45 73 15 102/72 100 Nasal Cannula 3.0 11/28/16 12:45 75 14 100 11/28/16 12:40 97.8 75 18 97/73 100 Nasal Cannula 3.0 11/28/16 11:42 97.9 90 19 106/66 97 Room Air 11/28/16 07:59 97.7 88 19 103/65 97 Room Air Intake and Output 11/28/16 11/29/16 19:00 07:00 Intake Total 490 ml 747.5 ml Output Total 0 ml Balance 490 ml 747.5 ml Intake Oral 240 ml 120 ml IV Total 250 ml 627.5 ml Estimated Blood Loss 0 ml # Voids 2 # Bowel Movements 3 General Appearance: no acute distress, cachetic, other - awake, alert, responsive, looking older than her chronological age female in NAD HEENT: normocephalic, atraumatic, anicteric, mucous membranes moist Respiratory/Chest: lungs clear, no respiratory distress, no accessory muscle use Cardiovascular: normal peripheral pulses, normal rate, no JVD Abdomen: normal bowel sounds, soft, non tender, non distended Genitourinary: normal external genitalia Extremities: no edema, pedal pulses normal Neurologic/Psychiatric: no motor/sensory deficits, alert, oriented x 3, responsive Musculoskeletal: normal muscle bulk Laboratory Tests 11/29/16 04:20: Prealbumin [Pending] 11/29/16 04:30: White Blood Count 12.7H, Red Blood Count 3.58L, Hemoglobin 11.6L, Hematocrit 33.7L, Mean Corpuscular Volume 94, Mean Corpuscular Hemoglobin 32.4H, Mean Corpuscular Hemoglobin Concent 34.4, Red Cell Distribution Width 11.4L, Platelet Count 424, Mean Platelet Volume 8.0, Neutrophils (%) (Auto) , Lymphocytes (%) (Auto) , Monocytes (%) (Auto) , Eosinophils (%) (Auto) , Basophils (%) (Auto) , Neutrophils % (Manual) [Pending], Lymphocytes % (Manual) [Pending], Platelet Estimate [Pending], Platelet Morphology [Pending], Sodium Level 120L, Potassium Level 3.8, Chloride Level 89L, Carbon Dioxide Level 21, Anion Gap 10, Blood Urea Nitrogen 6L, Creatinine 0.4L, Estimat Glomerular Filtration Rate > 60, Glucose Level 121H, Calcium Level 7.3L Current Medications Medications (Trade) Dose Ordered Sig/Pebbles Route PRN Reason Start Time Stop Time Status Last Admin Dose Admin Acetaminophen (Tylenol) 650 mg Q4H PRN ORAL fever 11/26/16 20:00 12/26/16 19:59 Dextrose (Dextrose 50%) STAT PRN IV Hypoglycemia 11/27/16 16:00 12/27/16 15:59 Diphenhydramine HCl (Benadryl) 25 mg Q6H PRN ORAL Itching/Pruritis 11/26/16 22:00 12/26/16 21:59 Heparin Sodium (Porcine) (Heparin 5000 units/ml) 5,000 units EVERY 12 HOURS SUBQ 11/26/16 21:00 12/26/16 20:59 11/28/16 22:08 Metronidazole 100 ml @ 100 mls/hr Q8HR IVPB 11/26/16 22:00 12/03/16 21:59 11/29/16 05:42 Morphine Sulfate (Morphine Sulfate) 2 mg Q4H PRN IVP moderat Pain (Pain Scale 4-6) 11/27/16 00:00 12/04/16 00:00 Morphine Sulfate (Morphine Sulfate) 4 mg Q4H PRN IVP For severe pain 7-11/26/16 22:30 12/03/16 22:29 11/29/16 03:08 Nitroglycerin (Ntg) 0.4 mg Q5M X 3 DOSES PRN SL Prn Chest Pain 11/26/16 17:30 12/26/16 17:29 Ondansetron HCl (Zofran) 4 mg Q6H PRN IVP Nausea & Vomiting 11/26/16 22:00 12/26/16 21:59 Pantoprazole (Protonix) 40 mg BID IVP 11/26/16 18:00 12/26/16 17:59 11/28/16 11:03 Piperacillin Sod/ Tazobactam Sod/ Dextrose (Zosyn/D5W) 110 ml @ 27.5 mls/hr EVERY 8 HOURS IVPB 11/26/16 22:00 12/03/16 21:59 11/29/16 05:42 Polyethylene Glycol (Miralax) 17 gm HSPRN PRN ORAL Constipation 11/27/16 16:00 12/27/16 15:59 Temazepam (Restoril) 15 mg HSPRN PRN ORAL Insomnia 11/27/16 16:00 12/04/16 15:59 Marissa Hawk NP ([facility]anchtein) Nov 29, 2016 07:56
[2016-11-29] MEDS ORDERED: NS IVPB SCH (08:15)
[2016-11-29] MEDS ORDERED: METHYLPREDNISOLONE SOD SUCC IVPB SCH (08:15)
[2016-11-29 08:27] LABS: BAND NEUTROPHILS % (MANUAL) 4 % (0-8); BASOPHILS % (MANUAL) 0 % (0-2); EOSINOPHILS % (MANUAL) 1 % (0-3); LYMPHOCYTES % (MANUAL) 11 % (20-45); NEUTROPHILS % (MANUAL) 77 % (45-75); PLATELET ESTIMATE INCREASED; PLATELET MORPHOLOGY NORMAL; TOTAL CELLS COUNTED 100
[2016-11-29 08:33] VITALS: BP 128/95
[2016-11-29 08:41] LABS: BILIRUBIN,DIRECT 0.2 mg/dL (0.1-0.3); MAGNESIUM 2.9 mg/dL (1.7-2.5); PHOSPHORUS 2.1 mg/dL (2.5-4.8); TOTAL PROTEIN 4.6 g/dL (6.6-8.7); URIC ACID 1.3 mg/dL (3.0-7.5)
[2016-11-29] MEDS: Solu-MEDROL 40mg Inj IVP SCH ×3 (08:46→22:07)
[2016-11-29] MEDS: Heparin 5000 units/ml inj SUBQ SCH ×2 (08:48→21:22)
--- NOTE | 2016-11-29 09:50 | General Progress Note ---
Assessment/Plan Status: unchanged Assessment/Plan status: Abdominal pain likely inflammatory bowel disease Hyponatremia improving Hypokalemia improving Sepsis Pancolitis Alcohol abuse HypoAlbuminemia Anemia stool OB + Plan: K and Phos supplement start solumedrol IV until biopsy results of colon available Lasix iv with Albumin and 3% Saline po fluid restriction urine studies- Monitor lytes Subjective ROS Limited/Unobtainable: No Allergies: Coded Allergies: No Known Allergies (Unverified , 09/20/13) Objective Last 24 Hour Vital Signs Date Time Temp Pulse Resp B/P Pulse Ox O2 Delivery O2 Flow Rate FiO2 11/29/16 08:33 98.2 88 18 128/95 97 Room Air 11/29/16 04:00 97.6 81 20 109/70 95 Room Air 11/29/16 03:38 97.6 11/29/16 00:02 97.9 77 20 101/63 93 Room Air 11/28/16 20:00 98.1 87 20 110/75 98 Room Air 11/28/16 16:00 97.0 90 18 96/69 98 Room Air 11/28/16 13:07 79 17 106/81 98 Room Air 11/28/16 13:00 97.6 78 16 110/79 98 Room Air 11/28/16 12:51 72 14 100 11/28/16 12:50 76 18 106/77 100 Nasal Cannula 3.0 11/28/16 12:45 73 15 102/72 100 Nasal Cannula 3.0 11/28/16 12:45 75 14 100 11/28/16 12:40 97.8 75 18 97/73 100 Nasal Cannula 3.0 11/28/16 11:42 97.9 90 19 106/66 97 Room Air Intake and Output 11/28/16 11/29/16 19:00 07:00 Intake Total 490 ml 747.5 ml Output Total 0 ml Balance 490 ml 747.5 ml Intake Oral 240 ml 120 ml IV Total 250 ml 627.5 ml Estimated Blood Loss 0 ml # Voids 2 # Bowel Movements 3 Laboratory Tests 11/29/16 04:20: Prealbumin [Pending] 11/29/16 04:30: White Blood Count 12.7H, Red Blood Count 3.58L, Hemoglobin 11.6L, Hematocrit 33.7L, Mean Corpuscular Volume 94, Mean Corpuscular Hemoglobin 32.4H, Mean Corpuscular Hemoglobin Concent 34.4, Red Cell Distribution Width 11.4L, Platelet Count 424, Mean Platelet Volume 8.0, Neutrophils (%) (Auto) , Lymphocytes (%) (Auto) , Monocytes (%) (Auto) , Eosinophils (%) (Auto) , Basophils (%) (Auto) , Differential Total Cells Counted 100, Neutrophils % ( Manual) 77H, Lymphocytes % (Manual) 11L, Monocytes % (Manual) 7, Eosinophils % ( Manual) 1, Basophils % (Manual) 0, Band Neutrophils 4, Platelet Estimate IncreasedH, Platelet Morphology Normal, Red Blood Cell Morphology Normal, Sodium Level 120L, Potassium Level 3.8, Chloride Level 89L, Carbon Dioxide Level 21, Anion Gap 10, Blood Urea Nitrogen 6L, Creatinine 0.4L, Estimat Glomerular Filtration Rate > 60, Glucose Level 121H, Uric Acid 1.3L, Calcium Level 7.3L, Phosphorus Level 2.1L, Magnesium Level 2.9H, Total Bilirubin 0.6, Direct Bilirubin 0.2, Aspartate Amino Transf (AST/SGOT) 14, Alanine Aminotransferase (ALT/SGPT) 9, Alkaline Phosphatase 75, Total Protein 4.6L, Albumin 1.4L, Cortisol AM Sample 25.3H Height (Feet): 5 Height (Inches): 5.00 Weight (Pounds): 130 General Appearance: no apparent distress Objective PE not changed SILVIO SCHROEDER Nov 29, 2016 09:50
[2016-11-29] MEDS ORDERED: Loperamide 2mg cap ORAL ONE (11:00)
[2016-11-29] MEDS ORDERED: [UNRECOGNIZED DRUG - OTHER] IV ONE (11:30)
[2016-11-29] MEDS ORDERED: SODIUM CHLORIDE IV ONE (11:30)
--- NOTE | 2016-11-29 12:01 | GI Progress Note ---
Assessment/Plan Problems: (1) abodminal hernia (2) Severe malnutrition ICD Codes: E43 - Unspecified severe protein-calorie malnutrition SNOMED: 98138955 (3) Dehydration ICD Codes: E86.0 - Dehydration SNOMED: 46956363 (4) Diarrhea ICD Codes: R19.7 - Diarrhea, unspecified SNOMED: 39638381 (5) Abdominal pain ICD Codes: R10.9 - Unspecified abdominal pain SNOMED: 20448311 Qualifiers: Qualified Codes: R10.84 - Generalized abdominal pain (6) Pancolitis ICD Codes: K51.00 - Ulcerative (chronic) pancolitis without complications SNOMED: 593916357 Status: stable Status Narrative Discussed with Dr. Cervantes. Assessment/Plan OB stool positive lipase WNL cdiff negative elevated CEA EGD/COLONOSCOPY SUMMARY OF FINDINGS: 1. Gastritis, status biopsy. 2. Hiatal hernia. 3. Severe abnormal looking finding in the colon and terminal ileum with ulcerations, inflammations, mucosal atrophy, pseudopolyp formation. Diagnosis at this time unknown. Differential diagnosis is inflammatory bowel disease versus severe infection versus an unusual infection. RECOMMENDATIONS: Follow up biopsy results and we will treat accordingly. fu stool studies, O&P low residual diet Imodium prn IV hydration + electrolyte replacement prn blood transfusion ppi fu labs Subjective Subjective diarrhea Objective Last 24 Hour Vital Signs Date Time Temp Pulse Resp B/P Pulse Ox O2 Delivery O2 Flow Rate FiO2 11/29/16 08:33 98.2 88 18 128/95 97 Room Air 11/29/16 04:00 97.6 81 20 109/70 95 Room Air 11/29/16 03:38 97.6 11/29/16 00:02 97.9 77 20 101/63 93 Room Air 11/28/16 20:00 98.1 87 20 110/75 98 Room Air 11/28/16 16:00 97.0 90 18 96/69 98 Room Air 11/28/16 13:07 79 17 106/81 98 Room Air 11/28/16 13:00 97.6 78 16 110/79 98 Room Air 11/28/16 12:51 72 14 100 11/28/16 12:50 76 18 106/77 100 Nasal Cannula 3.0 11/28/16 12:45 73 15 102/72 100 Nasal Cannula 3.0 11/28/16 12:45 75 14 100 11/28/16 12:40 97.8 75 18 97/73 100 Nasal Cannula 3.0 Intake and Output 11/28/16 11/29/16 19:00 07:00 Intake Total 490 ml 747.5 ml Output Total 0 ml Balance 490 ml 747.5 ml Intake Oral 240 ml 120 ml IV Total 250 ml 627.5 ml Estimated Blood Loss 0 ml # Voids 2 # Bowel Movements 3 Laboratory Tests Test 11/29/16 04:20 11/29/16 04:30 Prealbumin Pending White Blood Count 12.7 K/UL (4.8-10.8) H Red Blood Count 3.58 M/UL (4.20-5.40) L Hemoglobin 11.6 G/DL (12.0-16.0) L Hematocrit 33.7 % (37.0-47.0) L Mean Corpuscular Volume 94 FL (80-99) Mean Corpuscular Hemoglobin 32.4 PG (27.0-31.0) H Mean Corpuscular Hemoglobin Concent 34.4 G/DL (32.0-36.0) Red Cell Distribution Width 11.4 % (11.6-14.8) L Platelet Count 424 K/UL (150-450) Mean Platelet Volume 8.0 FL (6.5-10.1) Neutrophils (%) (Auto) % (45.0-75.0) Lymphocytes (%) (Auto) % (20.0-45.0) Monocytes (%) (Auto) % (1.0-10.0) Eosinophils (%) (Auto) % (0.0-3.0) Basophils (%) (Auto) % (0.0-2.0) Differential Total Cells Counted 100 Neutrophils % (Manual) 77 % (45-75) H Lymphocytes % (Manual) 11 % (20-45) L Monocytes % (Manual) 7 % (1-10) Eosinophils % (Manual) 1 % (0-3) Basophils % (Manual) 0 % (0-2) Band Neutrophils 4 % (0-8) Platelet Estimate Increased H Platelet Morphology Normal Red Blood Cell Morphology Normal Sodium Level 120 mEQ/L (135-145) L Potassium Level 3.8 mEQ/L (3.4-4.9) Chloride Level 89 mEQ/L (98-107) L Carbon Dioxide Level 21 mEQ/L (20-30) Anion Gap 10 (5-15) Blood Urea Nitrogen 6 mg/dL (7-23) L Creatinine 0.4 mg/dL (0.5-0.9) L Estimat Glomerular Filtration Rate > 60 mL/min (>60) Glucose Level 121 mg/dL (74-106) H Uric Acid 1.3 mg/dL (3.0-7.5) L Calcium Level 7.3 mg/dL (8.6-10.2) L Phosphorus Level 2.1 mg/dL (2.5-4.8) L Magnesium Level 2.9 mg/dL (1.7-2.5) H Total Bilirubin 0.6 mg/dL (0.0-1.2) Direct Bilirubin 0.2 mg/dL (0.1-0.3) Aspartate Amino Transf (AST/SGOT) 14 U/L (5-40) Alanine Aminotransferase (ALT/SGPT) 9 U/L (3-33) Alkaline Phosphatase 75 U/L (35-104) Total Protein 4.6 g/dL (6.6-8.7) L Albumin 1.4 g/dL (3.5-5.2) L Cortisol AM Sample 25.3 ug/dL (6.0-20.0) H Height (Feet): 5 Height (Inches): 5.00 Weight (Pounds): 130 General Appearance: no apparent distress, alert Cardiovascular: normal rate Respiratory/Chest: normal breath sounds, no respiratory distress Abdominal Exam: normal bowel sounds, non tender, soft Extremities: normal range of motion Yolette Ocampo N.P. Nov 29, 2016 12:01
[2016-11-29 12:11] VITALS: BP 107/71
[2016-11-29] MEDS: Phospha 250 Neutral tab ORAL SCH ×2 (13:16→18:46)
[2016-11-29] MEDS ORDERED: Loperamide 2mg cap ORAL PRN (15:00)
[2016-11-29] MEDS ORDERED: DuoNeb 0.5-3(2.5)mg/3ml neb HHN PRN (15:45)
[2016-11-29 16:30] VITALS: BP 102/70
[2016-11-29 20:00] VITALS: BP 107/76
[2016-11-29] MEDS: metroNIDAZOLE 500mg tab ORAL SCH (22:50)
[2016-11-30] VITALS: BP 111/71
[2016-11-30] MEDS: Morphine Sulfate 2mg/ml Inj IVP PRN (00:13)
[2016-11-30 04:00] VITALS: BP 109/75
[2016-11-30] MEDS: Piperacillin/Tazobactam 3.375 GM in D5W 110 ML IVPB SCH ×3 (05:49→21:23)
[2016-11-30] MEDS: Solu-MEDROL 40mg Inj IVP SCH ×3 (05:50→21:22)
[2016-11-30] MEDS: metroNIDAZOLE 500mg tab ORAL SCH ×3 (06:47→21:22)
--- NOTE | 2016-11-30 07:21 | General Progress Note ---
Assessment/Plan Problem List: (1) Severe malnutrition ICD Codes: E43 - Unspecified severe protein-calorie malnutrition SNOMED: 14994382 (2) Abdominal pain ICD Codes: R10.9 - Unspecified abdominal pain SNOMED: 04804198 Qualifiers: Qualified Codes: R10.84 - Generalized abdominal pain (3) Pancolitis ICD Codes: K51.00 - Ulcerative (chronic) pancolitis without complications SNOMED: 538608946 (4) Alcohol abuse ICD Codes: F10.10 - Alcohol abuse, uncomplicated SNOMED: 11841136 Assessment/Plan possible CD pending biopsy results on steroids fu Subjective ROS Limited/Unobtainable: Yes Allergies: Coded Allergies: No Known Allergies (Unverified , 09/20/13) Subjective no event Objective Last 24 Hour Vital Signs Date Time Temp Pulse Resp B/P Pulse Ox O2 Delivery O2 Flow Rate FiO2 11/30/16 04:00 98.4 81 18 109/75 97 Room Air 11/30/16 00:43 97.9 11/30/16 00:00 97.9 75 20 111/71 97 Room Air 11/29/16 20:00 98.1 79 18 107/76 96 Room Air 11/29/16 19:30 98.1 11/29/16 16:30 97.9 78 18 102/70 96 Room Air 11/29/16 12:11 97.2 18 107/71 97 Room Air 11/29/16 08:33 98.2 88 18 128/95 97 Room Air Intake and Output 11/29/16 11/30/16 19:00 07:00 Intake Total 1370.0 ml 440.0 ml Output Total 1000 ml 200 ml Balance 370.0 ml 240.0 ml Intake Oral 450 ml IV Total 920.0 ml 440.0 ml Output Urine Total 1000 ml 200 ml # Voids 2 5 # Bowel Movements 2 Height (Feet): 5 Height (Inches): 5.00 Weight (Pounds): 130 General Appearance: alert EENT: normal ENT inspection Neck: supple Cardiovascular: normal rate Respiratory/Chest: lungs clear Abdomen: normal bowel sounds, non tender, soft Extremities: non-tender DENNIS NEVES Nov 30, 2016 07:21
[2016-11-30 07:59] LABS: MEAN CORPUSCULAR HEMOGLOBIN 31.7 PG (27.0-31.0); MEAN CORPUSCULAR HGB CONC 33.5 G/DL (32.0-36.0); MEAN CORPUSCULAR VOLUME 95 FL (80-99); MEAN PLATELET VOLUME 7.8 FL (6.5-10.1); PLATELET COUNT 453 K/UL (150-450); RED BLOOD COUNT 3.56 M/UL (4.20-5.40); RED CELL DISTRIBUTION WIDTH 11.6 % (11.6-14.8); WHITE BLOOD COUNT 13.6 K/UL (4.8-10.8)
[2016-11-30 08:00] VITALS: BP 145/75
[2016-11-30] MEDS: Morphine Sulfate 4mg/ml Inj IVP PRN ×4 (09:31→22:40)
[2016-11-30] MEDS: Heparin 5000 units/ml inj SUBQ SCH ×2 (09:31→21:27)
[2016-11-30] MEDS: Phospha 250 Neutral tab ORAL SCH ×3 (09:31→17:59)
[2016-11-30] MEDS: Thiamine 100mg tab ORAL SCH (09:32)
--- NOTE | 2016-11-30 09:35 | Pulmonology Progress Note ---
Assessment/Plan Assessment/Plan ASSESSMENT sepsis pancolitis possible IBD/CD ETOH abuse abdominal hernia severe hyponatremia e/lyte imbalance ( hypo P, severe hypo Mg, hypo K) s/p EGD and colonoscopy gastritis severe colon abnormalities -IBD vs severe infection chronic calcified pancreatitis severe protein calorie malnutrition COPD/asthma PLAN OF CARE [facility] floor IV abx ID follows stool C dif and stool culture negative, blood cx preliminary negative GI follows s/p EGD and colon with findings of gastritis, s/p biopsy, HH, severe colon abnormalities, s/p bx - IBD vs severe infection on steroids awaiting for biopsy CT A/P findings c/w pancolitis , chronic calcified pancreatitis hepatitis panel and HIV negative pain management replace Mg today, P, Na and K stable HH at baseline, monitor ,transfuse prn, keep Hgb above 7, stool OB + O2 HHN prn DVT, GI prophylaxis dietary eval check prealbumin case discussed and evaluated by supervising physician Subjective Allergies: Coded Allergies: No Known Allergies (Unverified , 09/20/13) Subjective still with leukocytosis , trending down afebrile intermittent abdominal pain, on diet Mg-1.1 Objective Last 24 Hour Vital Signs Date Time Temp Pulse Resp B/P Pulse Ox O2 Delivery O2 Flow Rate FiO2 11/30/16 08:00 98.6 98 18 145/75 98 Room Air 11/30/16 07:52 78 18 Room Air 11/30/16 04:00 98.4 81 18 109/75 97 Room Air 11/30/16 00:43 97.9 11/30/16 00:00 97.9 75 20 111/71 97 Room Air 11/29/16 20:00 98.1 79 18 107/76 96 Room Air 11/29/16 19:30 98.1 11/29/16 16:30 97.9 78 18 102/70 96 Room Air 11/29/16 12:11 97.2 18 107/71 97 Room Air Intake and Output 11/29/16 11/30/16 19:00 07:00 Intake Total 1370.0 ml 440.0 ml Output Total 1000 ml 200 ml Balance 370.0 ml 240.0 ml Intake Oral 450 ml IV Total 920.0 ml 440.0 ml Output Urine Total 1000 ml 200 ml # Voids 2 5 # Bowel Movements 2 Objective General Appearance: no acute distress, cachetic, other - awake, alert, responsive, looking older than her chronological age female in NAD HEENT: normocephalic, atraumatic, anicteric, mucous membranes moist Respiratory/Chest: lungs clear, no respiratory distress, no accessory muscle use Cardiovascular: normal peripheral pulses, normal rate, no JVD Abdomen: normal bowel sounds, soft, abdominal hernia, mild tenderness on palpation, no guarding, no rebound , non distended Genitourinary: normal external genitalia Extremities: no edema, pedal pulses normal Neurologic/Psychiatric: no motor/sensory deficits, alert, oriented x 3, responsive Musculoskeletal: normal muscle bulk Microbiology Date/Time Source Procedure Growth Status 11/27/16 22:30 Stool Stool Culture - Final NO SALMONELLA,SHIGELLA OR CAMPYLOBACT... Complete Laboratory Tests 11/30/16 05:15: Plasma/Serum Osmolality [Pending] 11/30/16 05:20: White Blood Count 13.6H, Red Blood Count 3.56L, Hemoglobin 11.3L, Hematocrit 33.7L, Mean Corpuscular Volume 95, Mean Corpuscular Hemoglobin 31.7H, Mean Corpuscular Hemoglobin Concent 33.5, Red Cell Distribution Width 11.6, Platelet Count 453H, Mean Platelet Volume 7.8, Neutrophils (%) (Auto) , Lymphocytes (%) ( Auto) , Monocytes (%) (Auto) , Eosinophils (%) (Auto) , Basophils (%) (Auto) , Neutrophils % (Manual) [Pending], Lymphocytes % (Manual) [Pending], Platelet Estimate [Pending], Platelet Morphology [Pending], Sodium Level [Pending], Potassium Level [Pending], Chloride Level [Pending], Carbon Dioxide Level [ Pending], Blood Urea Nitrogen [Pending], Creatinine [Pending], Estimat Glomerular Filtration Rate [Pending], Glucose Level [Pending], Uric Acid [ Pending], Calcium Level [Pending], Phosphorus Level [Pending], Magnesium Level [ Pending], Total Bilirubin [Pending], Aspartate Amino Transf (AST/SGOT) [Pending] , Alanine Aminotransferase (ALT/SGPT) [Pending], Alkaline Phosphatase [Pending] , Total Protein [Pending], Albumin [Pending], Globulin [Pending] Current Medications Medications (Trade) Dose Ordered Sig/Pebbles Route PRN Reason Start Time Stop Time Status Last Admin Dose Admin Acetaminophen (Tylenol) 650 mg Q4H PRN ORAL fever 11/26/16 20:00 12/26/16 19:59 Albuterol/ Ipratropium (DuoNeb 0.5-3(2.5)mg/3ml) 3 ml Q4H PRN HHN Shortness of Breath 11/29/16 15:45 12/04/16 15:44 Dextrose (Dextrose 50%) STAT PRN IV Hypoglycemia 11/27/16 16:00 12/27/16 15:59 Diphenhydramine HCl (Benadryl) 25 mg Q6H PRN ORAL Itching/Pruritis 11/26/16 22:00 12/26/16 21:59 Folic Acid (Folate) 1 mg DAILY ORAL 11/30/16 09:00 12/30/16 08:59 Furosemide (Lasix) 10 mg EVERY 6 HOURS IV 11/29/16 10:00 12/29/16 09:59 11/30/16 05:49 Heparin Sodium (Porcine) (Heparin 5000 units/ml) 5,000 units EVERY 12 HOURS SUBQ 11/26/16 21:00 12/26/16 20:59 11/29/16 21:22 Loperamide HCl (Imodium) 2 mg Q4H PRN ORAL Diarrhea 11/29/16 15:00 12/29/16 14:59 Methylprednisolone Sodium Succinate (Solu-MEDROL) 25 mg Q8HR IVP 11/29/16 08:30 12/29/16 08:29 11/30/16 05:50 Metronidazole (Flagyl) 500 mg Q8HR ORAL 11/29/16 22:00 12/06/16 21:59 11/30/16 06:47 Morphine Sulfate (Morphine Sulfate) 2 mg Q4H PRN IVP moderat Pain (Pain Scale 4-6) 11/27/16 00:00 12/04/16 00:00 11/30/16 00:13 Morphine Sulfate (Morphine Sulfate) 4 mg Q4H PRN IVP For severe pain 7-10 11/26/16 22:30 12/03/16 22:29 11/29/16 19:00 Nitroglycerin (Ntg) 0.4 mg Q5M X 3 DOSES PRN SL Prn Chest Pain 11/26/16 17:30 12/26/16 17:29 Ondansetron HCl (Zofran) 4 mg Q6H PRN IVP Nausea & Vomiting 11/26/16 22:00 12/26/16 21:59 Pantoprazole (Protonix) 40 mg DAILY ORAL 11/29/16 09:00 12/29/16 08:59 11/29/16 08:46 Phosphorus (Phospha 250 Neutral) 500 mg THREE TIMES A DAY ORAL 11/29/16 13:00 12/29/16 12:59 11/29/16 18:46 Piperacillin Sod/ Tazobactam Sod/ Dextrose (Zosyn/D5W) 110 ml @ 27.5 mls/hr EVERY 8 HOURS IVPB 11/26/16 22:00 12/03/16 21:59 11/30/16 05:49 Polyethylene Glycol (Miralax) 17 gm HSPRN PRN ORAL Constipation 11/27/16 16:00 12/27/16 15:59 Potassium Chloride (K-Dur) 40 meq TWICE A DAY ORAL 11/29/16 10:00 12/29/16 09:59 11/29/16 18:46 Temazepam (Restoril) 15 mg HSPRN PRN ORAL Insomnia 11/27/16 16:00 12/04/16 15:59 Thiamine HCl (Vitamin B1) 100 mg DAILY ORAL 11/30/16 09:00 12/30/16 08:59 Kenn ManuelVa [facility] SystemMarissa Marroquin NP Nov 30, 2016 09:35
[2016-11-30] MEDS ORDERED: DuoNeb 0.5-3(2.5)mg/3ml neb HHN PRN (09:45)
[2016-11-30 09:48] LABS: ALANINE AMINOTRANSFERASE 9 U/L (3-33); ANION GAP 19 (5-15); ASPARTATE AMINO TRANSFERASE 18 U/L (5-40); CALCIUM 7.6 mg/dL (8.6-10.2); CARBON DIOXIDE 19 mEQ/L (20-30); CHLORIDE 96 mEQ/L (98-107); CREATININE 0.6 mg/dL (0.5-0.9); GLOMERULAR FILTRATION RATE > 60 mL/min (>60); HEMOLYSIS 28; MAGNESIUM 1.1 mg/dL (1.7-2.5); PHOSPHORUS 3.2 mg/dL (2.5-4.8); POTASSIUM 4.2 mEQ/L (3.4-4.9); SODIUM 134 mEQ/L (135-145); TOTAL PROTEIN 5.1 g/dL (6.6-8.7); URIC ACID 1.9 mg/dL (3.0-7.5)
[2016-11-30 11:03] LABS: BAND NEUTROPHILS % (MANUAL) 0 % (0-8); BASOPHILS % (MANUAL) 0 % (0-2); EOSINOPHILS % (MANUAL) 0 % (0-3); LYMPHOCYTES % (MANUAL) 5 % (20-45); NEUTROPHILS % (MANUAL) 91 % (45-75); PLATELET ESTIMATE ADEQUATE; PLATELET MORPHOLOGY NORMAL; TOTAL CELLS COUNTED 100
[2016-11-30 11:05] LABS: HYPOCHROMASIA 1+
--- NOTE | 2016-11-30 11:50 | Infectious Diseases Prog Note ---
Assessment/Plan Assessment/Plan A: ASSESSMENT: The patient is a 55-year-old female with, Leukocytosis, ( on steroids ) Low-grade fever. SP Pancolitis SP Colonoscopy : Severe abnormal looking finding in the colon and terminal ileum with ulcerations, inflammations, mucosal atrophy, pseudopolyp formation. Ro inflammatory bowel disease versus severe infection Stool for C. diff and Culture : negative CT : pancolitis, esophageal hernia, and chronic calcified pancreatitis. no diarrhea Hepatitis panel and HIV : Neg COPD. Asthma. PLAN: continue the patient on IV Zosyn and Flagyl d# 5 /5-7 Stool for ova and parasite. Monitor CBC. Monitor BMP. GI consult following Subjective Allergies: Coded Allergies: No Known Allergies (Unverified , 09/20/13) Subjective afebrile Objective Vital Signs Last 24 Hour Vital Signs Date Time Temp Pulse Resp B/P Pulse Ox O2 Delivery O2 Flow Rate FiO2 11/30/16 08:00 98.6 98 18 145/75 98 Room Air 11/30/16 07:52 78 18 Room Air 21 11/30/16 04:00 98.4 81 18 109/75 97 Room Air 11/30/16 00:43 97.9 11/30/16 00:00 97.9 75 20 111/71 97 Room Air 11/29/16 20:00 98.1 79 18 107/76 96 Room Air 11/29/16 19:30 98.1 11/29/16 16:30 97.9 78 18 102/70 96 Room Air 11/29/16 12:11 97.2 18 107/71 97 Room Air Height (Feet): 5 Height (Inches): 5.00 Weight (Pounds): 130 HEENT: atraumatic Respiratory/Chest: normal breath sounds Cardiovascular: normal rate Abdomen: soft, non tender Microbiology Date/Time Source Procedure Growth Status 11/27/16 22:30 Stool Stool Culture - Final NO SALMONELLA,SHIGELLA OR CAMPYLOBACT... Complete Laboratory Tests Test 11/30/16 05:15 11/30/16 05:20 Plasma/Serum Osmolality Pending White Blood Count 13.6 K/UL (4.8-10.8) H Red Blood Count 3.56 M/UL (4.20-5.40) L Hemoglobin 11.3 G/DL (12.0-16.0) L Hematocrit 33.7 % (37.0-47.0) L Mean Corpuscular Volume 95 FL (80-99) Mean Corpuscular Hemoglobin 31.7 PG (27.0-31.0) H Mean Corpuscular Hemoglobin Concent 33.5 G/DL (32.0-36.0) Red Cell Distribution Width 11.6 % (11.6-14.8) Platelet Count 453 K/UL (150-450) H Mean Platelet Volume 7.8 FL (6.5-10.1) Neutrophils (%) (Auto) % (45.0-75.0) Lymphocytes (%) (Auto) % (20.0-45.0) Monocytes (%) (Auto) % (1.0-10.0) Eosinophils (%) (Auto) % (0.0-3.0) Basophils (%) (Auto) % (0.0-2.0) Differential Total Cells Counted 100 Neutrophils % (Manual) 91 % (45-75) H Lymphocytes % (Manual) 5 % (20-45) L Monocytes % (Manual) 4 % (1-10) Eosinophils % (Manual) 0 % (0-3) Basophils % (Manual) 0 % (0-2) Band Neutrophils 0 % (0-8) Platelet Estimate Adequate Platelet Morphology Normal Hypochromasia 1+ Sodium Level 134 mEQ/L (135-145) L Potassium Level 4.2 mEQ/L (3.4-4.9) Chloride Level 96 mEQ/L (98-107) L Carbon Dioxide Level 19 mEQ/L (20-30) L Anion Gap 19 (5-15) H Blood Urea Nitrogen 9 mg/dL (7-23) Creatinine 0.6 mg/dL (0.5-0.9) Estimat Glomerular Filtration Rate > 60 mL/min (>60) Glucose Level 167 mg/dL (74-106) H Uric Acid 1.9 mg/dL (3.0-7.5) L Calcium Level 7.6 mg/dL (8.6-10.2) L Phosphorus Level 3.2 mg/dL (2.5-4.8) Magnesium Level 1.1 mg/dL (1.7-2.5) L Total Bilirubin 0.6 mg/dL (0.0-1.2) Aspartate Amino Transf (AST/SGOT) 18 U/L (5-40) Alanine Aminotransferase (ALT/SGPT) 9 U/L (3-33) Alkaline Phosphatase 125 U/L (35-104) H Total Protein 5.1 g/dL (6.6-8.7) L Albumin 2.6 g/dL (3.5-5.2) L Globulin 2.5 g/dL Albumin/Globulin Ratio 1.0 (1.0-2.7) Current Medications Medications (Trade) Dose Ordered Sig/Pebbles Route PRN Reason Start Time Stop Time Status Last Admin Dose Admin Acetaminophen (Tylenol) 650 mg Q4H PRN ORAL fever 11/26/16 20:00 12/26/16 19:59 Albuterol/ Ipratropium (DuoNeb 0.5-3(2.5)mg/3ml) 3 ml Q4H PRN HHN Shortness of Breath 11/29/16 15:45 12/04/16 15:44 Albuterol/ Ipratropium 3 ml 3 ml Q4H PRN HHN Shortness of Breath 11/30/16 09:45 12/05/16 09:44 Dextrose (Dextrose 50%) STAT PRN IV Hypoglycemia 11/27/16 16:00 12/27/16 15:59 Diphenhydramine HCl (Benadryl) 25 mg Q6H PRN ORAL Itching/Pruritis 11/26/16 22:00 12/26/16 21:59 Folic Acid (Folate) 1 mg DAILY ORAL 11/30/16 09:00 12/30/16 08:59 11/30/16 09:32 Furosemide (Lasix) 10 mg EVERY 6 HOURS IV 11/29/16 10:00 12/29/16 09:59 11/30/16 05:49 Heparin Sodium (Porcine) (Heparin 5000 units/ml) 5,000 units EVERY 12 HOURS SUBQ 11/26/16 21:00 12/26/16 20:59 11/30/16 09:31 Loperamide HCl (Imodium) 2 mg Q4H PRN ORAL Diarrhea 11/29/16 15:00 12/29/16 14:59 Magnesium Sulfate (Magnesium Sulfate 1gm/100ml) 100 ml @ 100 mls/hr Q1H IVPB 11/30/16 12:00 11/30/16 15:59 Methylprednisolone Sodium Succinate (Solu-MEDROL) 25 mg Q8HR IVP 11/29/16 08:30 12/29/16 08:29 11/30/16 05:50 Metronidazole (Flagyl) 500 mg Q8HR ORAL 11/29/16 22:00 12/06/16 21:59 11/30/16 06:47 Morphine Sulfate (Morphine Sulfate) 2 mg Q4H PRN IVP moderat Pain (Pain Scale 4-6) 11/27/16 00:00 12/04/16 00:00 11/30/16 00:13 Morphine Sulfate (Morphine Sulfate) 4 mg Q4H PRN IVP For severe pain 7-11/26/16 22:30 12/03/16 22:29 11/30/16 09:31 Nitroglycerin (Ntg) 0.4 mg Q5M X 3 DOSES PRN SL Prn Chest Pain 11/26/16 17:30 12/26/16 17:29 Ondansetron HCl (Zofran) 4 mg Q6H PRN IVP Nausea & Vomiting 11/26/16 22:00 12/26/16 21:59 Pantoprazole (Protonix) 40 mg DAILY ORAL 11/29/16 09:00 12/29/16 08:59 11/30/16 09:32 Phosphorus (Phospha 250 Neutral) 500 mg THREE TIMES A DAY ORAL 11/29/16 13:00 12/29/16 12:59 11/30/16 09:31 Piperacillin Sod/ Tazobactam Sod/ Dextrose (Zosyn/D5W) 110 ml @ 27.5 mls/hr EVERY 8 HOURS IVPB 11/26/16 22:00 12/03/16 21:59 11/30/16 05:49 Polyethylene Glycol (Miralax) 17 gm HSPRN PRN ORAL Constipation 11/27/16 16:00 12/27/16 15:59 Potassium Chloride (K-Dur) 40 meq TWICE A DAY ORAL 11/29/16 10:00 12/29/16 09:59 11/30/16 09:32 Temazepam (Restoril) 15 mg HSPRN PRN ORAL Insomnia 11/27/16 16:00 12/04/16 15:59 Thiamine HCl (Vitamin B1) 100 mg DAILY ORAL 11/30/16 09:00 12/30/16 08:59 11/30/16 09:32 JOE JACOBSEN M.D. Nov 30, 2016 11:50
[2016-11-30 12:00] VITALS: BP 151/72
[2016-11-30 16:10] VITALS: BP 120/70
[2016-11-30] MEDS ORDERED: NS 275ml ONE ×3 (16:10→16:59)
[2016-11-30] MEDS ORDERED: D5 1/2NS 1000ml IV ONE ×2 (16:10→16:56)
[2016-11-30] MEDS ORDERED: Tubing IV Secondary IV ONE ×3 (16:10→16:59)
[2016-11-30 20:00] VITALS: BP 141/77
[2016-12-01] VITALS: BP 137/72
[2016-12-01] MEDS: Morphine Sulfate 4mg/ml Inj IVP PRN ×5 (03:09→20:38)
[2016-12-01 04:00] VITALS: BP 140/78
[2016-12-01] MEDS: metroNIDAZOLE 500mg tab ORAL SCH ×3 (05:40→20:38)
[2016-12-01] MEDS: Solu-MEDROL 40mg Inj IVP SCH ×3 (05:40→20:39)
[2016-12-01] MEDS: Piperacillin/Tazobactam 3.375 GM in D5W 110 ML IVPB SCH ×3 (05:41→20:38)
[2016-12-01 07:49] VITALS: BP 108/55
--- NOTE | 2016-12-01 08:40 | Pulmonology Progress Note ---
Assessment/Plan Assessment/Plan ASSESSMENT sepsis pancolitis possible IBD/CD ETOH abuse abdominal hernia severe hyponatremia e/lyte imbalance ( hypo P, severe hypo Mg, hypo K) s/p EGD and colonoscopy gastritis severe colon abnormalities -IBD vs severe infection chronic calcified pancreatitis severe protein calorie malnutrition COPD/asthma PLAN OF CARE MS floor IV abx ID follows stool C dif and stool culture negative, blood cx preliminary negative GI follows s/p EGD and colon with findings of gastritis, s/p biopsy, HH, severe colon abnormalities, s/p bx - IBD vs severe infection on steroids awaiting for biopsy CT A/P findings c/w pancolitis , chronic calcified pancreatitis hepatitis panel and HIV negative pain management further replace Mg today, check Mg level in am; P, Na and K stable HH at baseline, monitor ,transfuse prn, keep Hgb above 7, stool OB + O2 HHN prn DVT, GI prophylaxis dietary eval prealbumin -3, protein supplements as per dietary recommendations case discussed and evaluated by supervising physician Subjective Allergies: Coded Allergies: No Known Allergies (Unverified , 09/20/13) Subjective afebrile intermittent abdominal pain, on diet Mg-1.3 Objective Last 24 Hour Vital Signs Date Time Temp Pulse Resp B/P Pulse Ox O2 Delivery O2 Flow Rate FiO2 12/01/16 07:49 96.8 97 18 108/55 96 Room Air 12/01/16 04:00 97.8 80 20 140/78 99 Room Air 12/01/16 00:00 98.1 74 18 137/72 97 Room Air 11/30/16 20:34 72 18 Room Air 21 11/30/16 20:00 98.4 75 18 141/77 99 Room Air 11/30/16 16:10 98.0 74 20 120/70 99 Room Air 11/30/16 12:00 98.2 85 18 151/72 98 Room Air Intake and Output 11/30/16 12/01/16 19:00 07:00 Intake Total 1192.5 ml 237.5 ml Balance 1192.5 ml 237.5 ml Intake Oral 600 ml 100 ml IV Total 592.5 ml 137.5 ml # Voids 5 4 # Bowel Movements 2 1 Objective General Appearance: no acute distress, cachetic, other - awake, alert, responsive, looking older than her chronological age female in NAD HEENT: normocephalic, atraumatic, anicteric, mucous membranes moist Respiratory/Chest: lungs clear, no respiratory distress, no accessory muscle use Cardiovascular: normal peripheral pulses, normal rate, no JVD Abdomen: normal bowel sounds, soft, abdominal hernia, mild tenderness on palpation, no guarding, no rebound , non distended Genitourinary: normal external genitalia Extremities: no edema, pedal pulses normal Neurologic/Psychiatric: no motor/sensory deficits, alert, oriented x 3, responsive Musculoskeletal: normal muscle bulk Laboratory Tests 12/01/16 05:00: Magnesium Level 1.3L Current Medications Medications (Trade) Dose Ordered Sig/Pebbles Route PRN Reason Start Time Stop Time Status Last Admin Dose Admin Acetaminophen (Tylenol) 650 mg Q4H PRN ORAL fever 11/26/16 20:00 12/26/16 19:59 Albuterol/ Ipratropium (DuoNeb 0.5-3(2.5)mg/3ml) 3 ml Q4H PRN HHN Shortness of Breath 11/30/16 09:45 12/05/16 09:44 Dextrose (Dextrose 50%) STAT PRN IV Hypoglycemia 11/27/16 16:00 12/27/16 15:59 Diphenhydramine HCl (Benadryl) 25 mg Q6H PRN ORAL Itching/Pruritis 11/26/16 22:00 12/26/16 21:59 Folic Acid (Folate) 1 mg DAILY ORAL 11/30/16 09:00 12/30/16 08:59 11/30/16 09:32 Furosemide (Lasix) 10 mg EVERY 6 HOURS IV 11/29/16 10:00 12/29/16 09:59 12/01/16 05:40 Heparin Sodium (Porcine) (Heparin 5000 units/ml) 5,000 units EVERY 12 HOURS SUBQ 11/26/16 21:00 12/26/16 20:59 11/30/16 21:27 Loperamide HCl (Imodium) 2 mg Q4H PRN ORAL Diarrhea 11/29/16 15:00 12/29/16 14:59 Methylprednisolone Sodium Succinate (Solu-MEDROL) 25 mg Q8HR IVP 11/29/16 08:30 12/29/16 08:29 12/01/16 05:40 Metronidazole (Flagyl) 500 mg Q8HR ORAL 11/29/16 22:00 12/06/16 21:59 12/01/16 05:40 Morphine Sulfate (Morphine Sulfate) 2 mg Q4H PRN IVP moderat Pain (Pain Scale 4-6) 11/27/16 00:00 12/04/16 00:00 11/30/16 00:13 Morphine Sulfate (Morphine Sulfate) 4 mg Q4H PRN IVP For severe pain 7-11/26/16 22:30 12/03/16 22:29 12/01/16 07:35 Nitroglycerin (Ntg) 0.4 mg Q5M X 3 DOSES PRN SL Prn Chest Pain 11/26/16 17:30 12/26/16 17:29 Ondansetron HCl (Zofran) 4 mg Q6H PRN IVP Nausea & Vomiting 11/26/16 22:00 12/26/16 21:59 Pantoprazole (Protonix) 40 mg DAILY ORAL 11/29/16 09:00 12/29/16 08:59 11/30/16 09:32 Phosphorus (Phospha 250 Neutral) 500 mg THREE TIMES A DAY ORAL 11/29/16 13:00 12/29/16 12:59 11/30/16 17:59 Piperacillin Sod/ Tazobactam Sod/ Dextrose (Zosyn/D5W) 110 ml @ 27.5 mls/hr EVERY 8 HOURS IVPB 11/26/16 22:00 12/03/16 21:59 12/01/16 05:41 Polyethylene Glycol (Miralax) 17 gm HSPRN PRN ORAL Constipation 11/27/16 16:00 12/27/16 15:59 Potassium Chloride (K-Dur) 40 meq TWICE A DAY ORAL 11/29/16 10:00 12/29/16 09:59 11/30/16 17:59 Temazepam (Restoril) 15 mg HSPRN PRN ORAL Insomnia 11/27/16 16:00 12/04/16 15:59 Thiamine HCl (Vitamin B1) 100 mg DAILY ORAL 11/30/16 09:00 12/30/16 08:59 11/30/16 09:32 Marissa Hawk NP ([facility]) Dec 01, 2016 08:40
[2016-12-01] MEDS: Thiamine 100mg tab ORAL SCH (08:44)
[2016-12-01] MEDS: Phospha 250 Neutral tab ORAL SCH ×3 (08:44→18:07)
[2016-12-01] MEDS: Heparin 5000 units/ml inj SUBQ SCH ×2 (08:45→20:40)
[2016-12-01 12:12] VITALS: BP 115/72
--- NOTE | 2016-12-01 12:43 | Infectious Diseases Prog Note ---
Assessment/Plan Assessment/Plan A; Pancolitis Hyponatremia COPD Fatty liver P: continue the patient on IV Zosyn and Flagyl Subjective ROS Limited/Unobtainable: No Constitutional: Reports: no symptoms Respiratory: Reports: no symptoms Cardiovascular: Reports: no symptoms Gastrointestinal/Abdominal: Reports: other - abdominal pain Allergies: Coded Allergies: No Known Allergies (Unverified , 09/20/13) Objective Vital Signs Last 24 Hour Vital Signs Date Time Temp Pulse Resp B/P Pulse Ox O2 Delivery O2 Flow Rate FiO2 12/01/16 12:12 96.8 86 18 115/72 96 Room Air 12/01/16 07:55 87 18 Room Air 21 12/01/16 07:49 96.8 97 18 108/55 96 Room Air 12/01/16 04:00 97.8 80 20 140/78 99 Room Air 12/01/16 00:00 98.1 74 18 137/72 97 Room Air 11/30/16 20:34 72 18 Room Air 21 11/30/16 20:00 98.4 75 18 141/77 99 Room Air 11/30/16 16:10 98.0 74 20 120/70 99 Room Air Height (Feet): 5 Height (Inches): 5.00 Weight (Pounds): 130 General Appearance: no acute distress HEENT: mucous membranes moist Respiratory/Chest: lungs clear Cardiovascular: normal rate Abdomen: hernia Extremities: no edema Neurologic/Psychiatric: alert, oriented x 3, responsive Laboratory Tests Test 12/01/16 05:00 Magnesium Level 1.3 mg/dL (1.7-2.5) L Current Medications Medications (Trade) Dose Ordered Sig/Pebbles Route PRN Reason Start Time Stop Time Status Last Admin Dose Admin Acetaminophen (Tylenol) 650 mg Q4H PRN ORAL fever 11/26/16 20:00 12/26/16 19:59 Albuterol/ Ipratropium 3 ml 3 ml Q4H PRN HHN Shortness of Breath 11/30/16 09:45 12/05/16 09:44 Dextrose (Dextrose 50%) STAT PRN IV Hypoglycemia 11/27/16 16:00 12/27/16 15:59 Diphenhydramine HCl (Benadryl) 25 mg Q6H PRN ORAL Itching/Pruritis 11/26/16 22:00 12/26/16 21:59 Folic Acid (Folate) 1 mg DAILY ORAL 11/30/16 09:00 12/30/16 08:59 12/01/16 08:44 Furosemide (Lasix) 10 mg EVERY 6 HOURS IV 11/29/16 10:00 12/29/16 09:59 12/01/16 11:45 Heparin Sodium (Porcine) (Heparin 5000 units/ml) 5,000 units EVERY 12 HOURS SUBQ 11/26/16 21:00 12/26/16 20:59 12/01/16 08:45 Loperamide HCl (Imodium) 2 mg Q4H PRN ORAL Diarrhea 11/29/16 15:00 12/29/16 14:59 Magnesium Sulfate (Magnesium Sulfate 1gm/100ml) 100 ml @ 100 mls/hr Q1H IVPB 12/01/16 09:45 12/01/16 13:44 12/01/16 10:59 Methylprednisolone Sodium Succinate (Solu-MEDROL) 25 mg Q8HR IVP 11/29/16 08:30 12/29/16 08:29 12/01/16 05:40 Metronidazole (Flagyl) 500 mg Q8HR ORAL 11/29/16 22:00 12/06/16 21:59 12/01/16 05:40 Morphine Sulfate (Morphine Sulfate) 2 mg Q4H PRN IVP moderat Pain (Pain Scale 4-6) 11/27/16 00:00 12/04/16 00:00 11/30/16 00:13 Morphine Sulfate (Morphine Sulfate) 4 mg Q4H PRN IVP For severe pain 7-11/26/16 22:30 12/03/16 22:29 12/01/16 11:45 Nitroglycerin (Ntg) 0.4 mg Q5M X 3 DOSES PRN SL Prn Chest Pain 11/26/16 17:30 12/26/16 17:29 Ondansetron HCl (Zofran) 4 mg Q6H PRN IVP Nausea & Vomiting 11/26/16 22:00 12/26/16 21:59 Pantoprazole (Protonix) 40 mg DAILY ORAL 11/29/16 09:00 12/29/16 08:59 12/01/16 08:44 Phosphorus (Phospha 250 Neutral) 500 mg THREE TIMES A DAY ORAL 11/29/16 13:00 12/29/16 12:59 12/01/16 08:44 Piperacillin Sod/ Tazobactam Sod/ Dextrose (Zosyn/D5W) 110 ml @ 27.5 mls/hr EVERY 8 HOURS IVPB 11/26/16 22:00 12/03/16 21:59 12/01/16 05:41 Polyethylene Glycol (Miralax) 17 gm HSPRN PRN ORAL Constipation 11/27/16 16:00 12/27/16 15:59 Potassium Chloride (K-Dur) 40 meq TWICE A DAY ORAL 11/29/16 10:00 12/29/16 09:59 12/01/16 08:43 Temazepam (Restoril) 15 mg HSPRN PRN ORAL Insomnia 11/27/16 16:00 12/04/16 15:59 Thiamine HCl (Vitamin B1) 100 mg DAILY ORAL 11/30/16 09:00 12/30/16 08:59 12/01/16 08:44 AUDRA LOU Dec 01, 2016 12:43
[2016-12-01 16:00] VITALS: BP 125/88
[2016-12-01 20:00] VITALS: BP 141/94
[2016-12-02] VITALS: BP 127/85
[2016-12-02] MEDS: Morphine Sulfate 4mg/ml Inj IVP PRN ×3 (03:40→11:43)
[2016-12-02 04:00] VITALS: BP 150/90
[2016-12-02] MEDS: metroNIDAZOLE 500mg tab ORAL SCH ×2 (06:29→14:00)
[2016-12-02] MEDS: Piperacillin/Tazobactam 3.375 GM in D5W 110 ML IVPB SCH ×2 (06:29→14:00)
[2016-12-02] MEDS: Solu-MEDROL 40mg Inj IVP SCH ×2 (06:30→14:00)
[2016-12-02 07:19] LABS: BASOPHILS % (AUTO) 0.4 % (0.0-2.0); EOSINOPHILS % (AUTO) 0.8 % (0.0-3.0); LYMPHOCYTES % (AUTO) 16.8 % (20.0-45.0); MEAN CORPUSCULAR HEMOGLOBIN 32.2 PG (27.0-31.0); MEAN CORPUSCULAR HGB CONC 33.8 G/DL (32.0-36.0); MEAN CORPUSCULAR VOLUME 95 FL (80-99); MEAN PLATELET VOLUME 7.4 FL (6.5-10.1); MONOCYTES % (AUTO) 4.5 % (1.0-10.0); NEUTROPHILS % (AUTO) 77.5 % (45.0-75.0); PLATELET COUNT 557 K/UL (150-450); RED BLOOD COUNT 3.47 M/UL (4.20-5.40); RED CELL DISTRIBUTION WIDTH 12.2 % (11.6-14.8); WHITE BLOOD COUNT 9.5 K/UL (4.8-10.8)
[2016-12-02] MEDS: Phospha 250 Neutral tab ORAL SCH ×2 (07:48→13:00)
[2016-12-02] MEDS: Thiamine 100mg tab ORAL SCH (07:48)
[2016-12-02] MEDS: Heparin 5000 units/ml inj SUBQ SCH (07:53)
[2016-12-02 08:05] LABS: ANION GAP 13 (5-15); CALCIUM 7.9 mg/dL (8.6-10.2); CARBON DIOXIDE 26 mEQ/L (20-30); CHLORIDE 97 mEQ/L (98-107); CREATININE 0.6 mg/dL (0.5-0.9); GLOMERULAR FILTRATION RATE > 60 mL/min (>60); HEMOLYSIS 4; MAGNESIUM 1.4 mg/dL (1.7-2.5); POTASSIUM 4.8 mEQ/L (3.4-4.9); SODIUM 136 mEQ/L (135-145)
[2016-12-02 08:22] VITALS: BP 111/81
--- NOTE | 2016-12-02 09:06 | Infectious Diseases Prog Note ---
Assessment/Plan Assessment/Plan A: ASSESSMENT: The patient is a 55-year-old female with, Leukocytosis, ( on steroids ) , SP Low-grade fever. SP Pancolitis Stool for ova and parasite and CX : neg SP Colonoscopy : Severe abnormal looking finding in the colon and terminal ileum with ulcerations, inflammations, mucosal atrophy, pseudopolyp formation. Ro inflammatory bowel disease versus severe infection Stool for C. diff and Culture : negative CT : pancolitis, esophageal hernia, and chronic calcified pancreatitis. no diarrhea Hepatitis panel and HIV : Neg COPD. Asthma. PLAN: continue the patient on IV Zosyn and Flagyl d# / Monitor CBC. Monitor BMP. GI consult following colon Bx Path : P Subjective Constitutional: Denies: anorexia, chills, drenching sweats, fatigue, fever, no symptoms, other Allergies: Coded Allergies: No Known Allergies (Unverified , 09/20/13) Objective Vital Signs Last 24 Hour Vital Signs Date Time Temp Pulse Resp B/P Pulse Ox O2 Delivery O2 Flow Rate FiO2 12/02/16 08:48 Room Air 12/02/16 08:22 97.0 109 20 111/81 98 Room Air 12/02/16 08:17 97.0 12/02/16 04:00 98.2 79 18 150/90 98 Room Air 12/02/16 00:00 97.9 83 18 127/85 97 Room Air 12/01/16 23:56 77 18 Room Air 21 12/01/16 20:00 97.9 84 18 141/94 Room Air 12/01/16 16:00 97.5 89 18 125/88 96 Room Air 12/01/16 12:12 96.8 86 18 115/72 96 Room Air Height (Feet): 5 Height (Inches): 5.00 Weight (Pounds): 130 HEENT: anicteric Respiratory/Chest: normal breath sounds Cardiovascular: normal rate Abdomen: non distended Laboratory Tests Test 12/02/16 05:20 White Blood Count 9.5 K/UL (4.8-10.8) Red Blood Count 3.47 M/UL (4.20-5.40) L Hemoglobin 11.2 G/DL (12.0-16.0) L Hematocrit 33.0 % (37.0-47.0) L Mean Corpuscular Volume 95 FL (80-99) Mean Corpuscular Hemoglobin 32.2 PG (27.0-31.0) H Mean Corpuscular Hemoglobin Concent 33.8 G/DL (32.0-36.0) Red Cell Distribution Width 12.2 % (11.6-14.8) Platelet Count 557 K/UL (150-450) H Mean Platelet Volume 7.4 FL (6.5-10.1) Neutrophils (%) (Auto) 77.5 % (45.0-75.0) H Lymphocytes (%) (Auto) 16.8 % (20.0-45.0) L Monocytes (%) (Auto) 4.5 % (1.0-10.0) Eosinophils (%) (Auto) 0.8 % (0.0-3.0) Basophils (%) (Auto) 0.4 % (0.0-2.0) Sodium Level 136 mEQ/L (135-145) Potassium Level 4.8 mEQ/L (3.4-4.9) Chloride Level 97 mEQ/L (98-107) L Carbon Dioxide Level 26 mEQ/L (20-30) Anion Gap 13 (5-15) Blood Urea Nitrogen 14 mg/dL (7-23) Creatinine 0.6 mg/dL (0.5-0.9) Estimat Glomerular Filtration Rate > 60 mL/min (>60) Glucose Level 109 mg/dL (74-106) H Calcium Level 7.9 mg/dL (8.6-10.2) L Magnesium Level 1.4 mg/dL (1.7-2.5) L Current Medications Medications (Trade) Dose Ordered Sig/Pebbles Route PRN Reason Start Time Stop Time Status Last Admin Dose Admin Acetaminophen (Tylenol) 650 mg Q4H PRN ORAL fever 11/26/16 20:00 12/26/16 19:59 Albuterol/ Ipratropium (DuoNeb 0.5-3(2.5)mg/3ml) 3 ml Q4H PRN HHN Shortness of Breath 11/30/16 09:45 12/05/16 09:44 Dextrose (Dextrose 50%) STAT PRN IV Hypoglycemia 11/27/16 16:00 12/27/16 15:59 Diphenhydramine HCl (Benadryl) 25 mg Q6H PRN ORAL Itching/Pruritis 11/26/16 22:00 12/26/16 21:59 Folic Acid (Folate) 1 mg DAILY ORAL 11/30/16 09:00 12/30/16 08:59 12/02/16 07:48 Furosemide (Lasix) 10 mg EVERY 6 HOURS IV 11/29/16 10:00 12/29/16 09:59 12/02/16 06:29 Heparin Sodium (Porcine) (Heparin 5000 units/ml) 5,000 units EVERY 12 HOURS SUBQ 11/26/16 21:00 12/26/16 20:59 12/02/16 07:53 Loperamide HCl (Imodium) 2 mg Q4H PRN ORAL Diarrhea 11/29/16 15:00 12/29/16 14:59 Methylprednisolone Sodium Succinate (Solu-MEDROL) 25 mg Q8HR IVP 11/29/16 08:30 12/29/16 08:29 12/02/16 06:30 Metronidazole (Flagyl) 500 mg Q8HR ORAL 11/29/16 22:00 12/06/16 21:59 12/02/16 06:29 Morphine Sulfate (Morphine Sulfate) 2 mg Q4H PRN IVP moderat Pain (Pain Scale 4-6) 11/27/16 00:00 12/04/16 00:00 11/30/16 00:13 Morphine Sulfate (Morphine Sulfate) 4 mg Q4H PRN IVP For severe pain 7-10 11/26/16 22:30 12/03/16 22:29 12/02/16 07:47 Nitroglycerin (Ntg) 0.4 mg Q5M X 3 DOSES PRN SL Prn Chest Pain 11/26/16 17:30 12/26/16 17:29 Ondansetron HCl (Zofran) 4 mg Q6H PRN IVP Nausea & Vomiting 11/26/16 22:00 12/26/16 21:59 Pantoprazole (Protonix) 40 mg DAILY ORAL 11/29/16 09:00 12/29/16 08:59 12/02/16 07:47 Phosphorus (Phospha 250 Neutral) 500 mg THREE TIMES A DAY ORAL 11/29/16 13:00 12/29/16 12:59 12/02/16 07:48 Piperacillin Sod/ Tazobactam Sod/ Dextrose (Zosyn/D5W) 110 ml @ 27.5 mls/hr EVERY 8 HOURS IVPB 11/26/16 22:00 12/03/16 21:59 12/02/16 06:29 Polyethylene Glycol (Miralax) 17 gm HSPRN PRN ORAL Constipation 11/27/16 16:00 12/27/16 15:59 Potassium Chloride (K-Dur) 40 meq TWICE A DAY ORAL 11/29/16 10:00 12/29/16 09:59 12/02/16 07:48 Temazepam (Restoril) 15 mg HSPRN PRN ORAL Insomnia 11/27/16 16:00 12/04/16 15:59 12/01/16 20:38 Thiamine HCl (Vitamin B1) 100 mg DAILY ORAL 11/30/16 09:00 12/30/16 08:59 12/02/16 07:48 JOE JACOBSEN M.D. Dec 02, 2016 09:06
[2016-12-02 11:53] VITALS: BP 114/77
--- NOTE | 2016-12-02 12:33 | GI Progress Note ---
Assessment/Plan Problems: (1) abodminal hernia (2) Severe malnutrition ICD Codes: E43 - Unspecified severe protein-calorie malnutrition SNOMED: 00152017 (3) Dehydration ICD Codes: E86.0 - Dehydration SNOMED: 60160067 (4) Diarrhea ICD Codes: R19.7 - Diarrhea, unspecified SNOMED: 76074214 (5) Abdominal pain ICD Codes: R10.9 - Unspecified abdominal pain SNOMED: 93104289 Qualifiers: Qualified Codes: R10.84 - Generalized abdominal pain (6) Pancolitis ICD Codes: K51.00 - Ulcerative (chronic) pancolitis without complications SNOMED: 227779967 Status: stable, progressing Status Narrative Discussed with Dr. Cervantes. Assessment/Plan OB stool positive lipase WNL cdiff negative O&P negative Stool culture negative elevated CEA EGD/COLONOSCOPY SUMMARY OF FINDINGS: 1. Gastritis, status biopsy. 2. Hiatal hernia. 3. Severe abnormal looking finding in the colon and terminal ileum with ulcerations, inflammations, mucosal atrophy, pseudopolyp formation. Diagnosis at this time unknown. Differential diagnosis is inflammatory bowel disease versus severe infection versus an unusual infection. RECOMMENDATIONS: ok for DC per GI standpoint >> will require Rx Solu Medrol Pack to taper off steroids, in physical chart. possible CD >> Follow up biopsy results and we will treat accordingly. low residual diet Imodium prn IV hydration + electrolyte replacement prn blood transfusion ppi on steroids fu labs Subjective Subjective diarrhea resolved, soft BM Objective Last 24 Hour Vital Signs Date Time Temp Pulse Resp B/P Pulse Ox O2 Delivery O2 Flow Rate FiO2 12/02/16 11:53 97.5 88 19 114/77 98 Room Air 12/02/16 08:48 Room Air 12/02/16 08:22 97.0 109 20 111/81 98 Room Air 12/02/16 08:17 97.0 12/02/16 04:00 98.2 79 18 150/90 98 Room Air 12/02/16 00:00 97.9 83 18 127/85 97 Room Air 12/01/16 23:56 77 18 Room Air 21 12/01/16 20:00 97.9 84 18 141/94 Room Air 12/01/16 16:00 97.5 89 18 125/88 96 Room Air Intake and Output 12/01/16 12/02/16 19:00 07:00 Intake Total 600 ml 110.0 ml Balance 600 ml 110.0 ml Intake Oral 600 ml IV Total 110.0 ml # Voids 6 4 # Bowel Movements 1 2 Laboratory Tests Test 12/02/16 05:20 White Blood Count 9.5 K/UL (4.8-10.8) Red Blood Count 3.47 M/UL (4.20-5.40) L Hemoglobin 11.2 G/DL (12.0-16.0) L Hematocrit 33.0 % (37.0-47.0) L Mean Corpuscular Volume 95 FL (80-99) Mean Corpuscular Hemoglobin 32.2 PG (27.0-31.0) H Mean Corpuscular Hemoglobin Concent 33.8 G/DL (32.0-36.0) Red Cell Distribution Width 12.2 % (11.6-14.8) Platelet Count 557 K/UL (150-450) H Mean Platelet Volume 7.4 FL (6.5-10.1) Neutrophils (%) (Auto) 77.5 % (45.0-75.0) H Lymphocytes (%) (Auto) 16.8 % (20.0-45.0) L Monocytes (%) (Auto) 4.5 % (1.0-10.0) Eosinophils (%) (Auto) 0.8 % (0.0-3.0) Basophils (%) (Auto) 0.4 % (0.0-2.0) Sodium Level 136 mEQ/L (135-145) Potassium Level 4.8 mEQ/L (3.4-4.9) Chloride Level 97 mEQ/L (98-107) L Carbon Dioxide Level 26 mEQ/L (20-30) Anion Gap 13 (5-15) Blood Urea Nitrogen 14 mg/dL (7-23) Creatinine 0.6 mg/dL (0.5-0.9) Estimat Glomerular Filtration Rate > 60 mL/min (>60) Glucose Level 109 mg/dL (74-106) H Calcium Level 7.9 mg/dL (8.6-10.2) L Magnesium Level 1.4 mg/dL (1.7-2.5) L Height (Feet): 5 Height (Inches): 5.00 Weight (Pounds): 130 General Appearance: no apparent distress Cardiovascular: normal rate Respiratory/Chest: normal breath sounds, no respiratory distress Abdominal Exam: normal bowel sounds, non tender, soft Extremities: normal range of motion Yolette Ocampo N.P. Dec 02, 2016 12:33
[2016-12-02] MEDS ORDERED: IMODIUM2 MG ORAL (15:23)
[2016-12-02] MEDS: Morphine Sulfate 2mg/ml Inj IVP PRN (15:44)
[2016-12-02 16:29] VITALS: BP 130/84
--- NOTE | 2016-12-02 19:46 | Pulmonology Progress Note ---
Assessment/Plan Problems: (1) Pancolitis (2) Sepsis (3) Hyponatremia (4) abodminal hernia (5) Alcohol abuse Assessment/Plan iv abx finished gi evaluation /f/u panculture stool for c/s dc home today Subjective ROS Limited/Unobtainable: No Interval Events: asymotmatic Allergies: Coded Allergies: No Known Allergies (Unverified , 09/20/13) Objective Last 24 Hour Vital Signs Date Time Temp Pulse Resp B/P Pulse Ox O2 Delivery O2 Flow Rate FiO2 12/02/16 16:33 97.9 12/02/16 16:29 97.9 102 20 130/84 99 Room Air 12/02/16 12:13 97.5 12/02/16 11:53 97.5 88 19 114/77 98 Room Air 12/02/16 08:48 Room Air 12/02/16 08:22 97.0 109 20 111/81 98 Room Air 12/02/16 04:00 98.2 79 18 150/90 98 Room Air 12/02/16 00:00 97.9 83 18 127/85 97 Room Air 12/01/16 23:56 77 18 Room Air 21 12/01/16 20:00 97.9 84 18 141/94 Room Air Intake and Output 12/01/16 12/02/16 19:00 07:00 Intake Total 600 ml 110.0 ml Balance 600 ml 110.0 ml Intake Oral 600 ml IV Total 110.0 ml # Voids 6 4 # Bowel Movements 1 2 General Appearance: WD/WN HEENT: normocephalic Respiratory/Chest: chest wall non-tender, lungs clear Breasts: no masses Cardiovascular: normal peripheral pulses Abdomen: normal bowel sounds, soft, non tender Genitourinary: normal external genitalia Extremities: no cyanosis Microbiology Date/Time Source Procedure Growth Status 12/01/16 02:00 Stool Stool Culture - Preliminary NORMAL FECAL ALIREZA. Resulted Laboratory Tests 12/02/16 05:20: White Blood Count 9.5, Red Blood Count 3.47L, Hemoglobin 11.2L, Hematocrit 33.0L , Mean Corpuscular Volume 95, Mean Corpuscular Hemoglobin 32.2H, Mean Corpuscular Hemoglobin Concent 33.8, Red Cell Distribution Width 12.2, Platelet Count 557H, Mean Platelet Volume 7.4, Neutrophils (%) (Auto) 77.5H, Lymphocytes (%) (Auto) 16.8L, Monocytes (%) (Auto) 4.5, Eosinophils (%) (Auto) 0.8, Basophils (%) (Auto) 0.4, Sodium Level 136, Potassium Level 4.8, Chloride Level 97L, Carbon Dioxide Level 26, Anion Gap 13, Blood Urea Nitrogen 14, Creatinine 0.6, Estimat Glomerular Filtration Rate > 60, Glucose Level 109H, Calcium Level 7.9L, Magnesium Level 1.4L JESSICA GARCIA Dec 02, 2016 19:46
--- NOTE | 2016-12-03 10:38 | Discharge Summary ---
Discharge Summary Hospital Course Date of Admission Nov 25, 2016 at 14:30 Date of Discharge Dec 02, 2016 at 16:15 Admitting Diagnosis sepsis HPI Fang Barbosa is a 56 year old female who was admitted on Nov 25, 2016 at 14:30 for Sepsis Hospital Course dc summary #[id number] Discharge Medications New Medications: Loperamide HCl (Loperamide) 2 Mg Capsule 2 MG ORAL Q4H PRN for 30 Days, CAP Continued Medications: Gabapentin* (Gabapentin*) 100 Mg Capsule 100 MG ORAL THREE TIMES A DAY, CAP Discharge Condition Upon Discharge: stable Discharge Disposition Patient was discharged to Home (01) Discharge Diagnoses: Kenn (Melvin),Marissa MIGUEL Dec 03, 2016 10:38
--- NOTE | 2016-12-03 12:46 | Discharge Summary 2 SIG ---
DATE OF ADMISSION: 11/25/2016 DATE OF DISCHARGE: 12/02/2016 REASON FOR ADMISSION: 56-year-old female with history of alcohol abuse and depression, presented to the emergency room with bloody diarrhea. CAT scan in the emergency room revealed pancolitis. Na-123, K-2.1 The patient was admitted for further evaluation. ADMITTING DIAGNOSES: 1. Sepsis. 2. Pancolitis. 3. Alcohol abuse. 4. Abdominal hernia. 5. Hyponatremia 6. Hypokalemia HOSPITAL COURSE: The patient was admitted to Med/Surg floor. The patient was started on empiric IV antibiotics. GI consult requested. Stool culture were negative. Stool for ova and parasites was negative. Blood cultures were negative. Stool for C. difficile was negative. The patient status post IV antibiotic treatment. ID closely followed. ID recommended to monitor the patient off antibiotic. GI closely followed the patient. The patient undergone esophagogastroduodenoscopy and colonoscopy with findings of gastritis, status post biopsy, hiatal hernia, severe colon abnormalities, s/p biopsy: possible Crohn disease versus severe infection. The patient was started on steroids, awaiting for biopsy results. CT of the abdomen and pelvis findings were consistent with pancolitis and chronic calcified pancreatitis. Hepatitis panel was negative. HIV status negative. Pain management was addressed, managed and controlled. Electrolytes were replaced as needed. Sodium and potassium stable. Magnesium needed further replacement, Hemoglobin and hematocrit were closely monitored. No need for transfusion. Keep the hemoglobin as goal above 7. Stool OB was positive. DVT and GI prophylaxis provided. Supplemental oxygen and pulmonary toilet provided as needed. Dietary evaluation was appreciated. Pre-albumin - 3, protein supplement added as per dietary recommendations. Leukocytosis resolved. On 12/02/2016, biopsy results still still pending. GI cleared the patient for discharge on Medrol Dosepak and will follow up with the biopsy results. Electrolytes stable. Pain controlled. The patient was able to tolerate diet. The patient was counseled on abstinence from alcohol and provided a referral to Alcoholic Anonymous. Thiamine and folic acid added to existing regimen . The patient was stable for discharge. DISCHARGE DIAGNOSES: 1. Sepsis. 2. Pancolitis. 3. Possible Crohn disease. 4. Alcohol abuse. 5. Abdominal hernia. 6. Severe hyponatremia, resolved. 7. Electrolyte abnormality (hypophosphatemia, severe hypomagnesemia, and hypokalemia). 8. Status post esophagogastroduodenoscopy and colonoscopy. 9. Gastritis. 10. Severe colon abnormality: 11. Possible Crohn disease 12. Chronic calcified pancreatitis ( likely due to long standing history of alcohol abuse) alcohol abuse . 13. Severe protein-calorie malnutrition. 14. Chronic obstructive pulmonary disease/asthma. DISCHARGE MEDICATIONS: See medication reconciliation list. DISCHARGE INSTRUCTIONS: The patient to follow up with primary medical doctor. Isai Lyons M.D. aMrissa ManuelCreedmoor Psychiatric CenterCara N.PPopeye DR: MAGALI JOB#: [id number] CC: RUDY
== END 2016-12-02 16:15 | disposition home or self-care (01) | DRG 871 ==
LOC: EDBD 12:01 → EMR 12:40 → 2E 14:30 → EDBEDREQ 15:32 → 4W 11-26 17:21
PROC: 0DB68ZX Excision of Stomach, Via Natural or Artificial Opening Endoscopic, Diagnostic (ICD-10-PCS; principal; 2016-11-28 12:09)
PROC: 0DBH8ZX Excision of Cecum, Via Natural or Artificial Opening Endoscopic, Diagnostic (ICD-10-PCS; principal; 2016-11-28 12:09)
PROC: 0DBB8ZX Excision of Ileum, Via Natural or Artificial Opening Endoscopic, Diagnostic (ICD-10-PCS; principal; 2016-11-28 12:09)
PROC: 0DBK8ZX Excision of Ascending Colon, Via Natural or Artificial Opening Endoscopic, Diagnostic (ICD-10-PCS; principal; 2016-11-28 12:09)
DX: A41.9 Sepsis, unspecified organism (principal); E43 Unspecified severe protein-calorie malnutrition; K50.90 Crohn's disease, unspecified, without complications; K51.00 Ulcerative (chronic) pancolitis without complications; E87.1 Hypo-osmolality and hyponatremia; K86.1 Other chronic pancreatitis; F10.10 Alcohol abuse, uncomplicated; K46.9 Unspecified abdominal hernia without obstruction or gangrene; E83.39 Other disorders of phosphorus metabolism; E83.42 Hypomagnesemia; E87.6 Hypokalemia; J44.9 Chronic obstructive pulmonary disease, unspecified; F17.200 Nicotine dependence, unspecified, uncomplicated; K29.70 Gastritis, unspecified, without bleeding; K44.9 Diaphragmatic hernia without obstruction or gangrene; K64.8 Other hemorrhoids
CPT/HCPCS: 36415; 74177; 80048; 80053; 80061; 80076; 81003; 82140; 82150; 82270; 82378; 82533; 82550; 82607; 82728; 82746; 82977; 83540; 83550; 83605; 83690; 83735; 83880; 83930; 83935; 84100; 84134; 84300; 84439; 84443; 84550; 85007; 85025; 85044; 85610; 85730; 86140; 86703; 86705; 86709; 86803; 87040; 87045; 87324; 87340; 93005; 94003; 94150; 94664; 97802; C9399; J2405; J8499